=== PATIENT | male | born 1950 | race Caucasian/White ===

== ENCOUNTER → 2018-03-08 13:46 | Outpatient (CLI) | payer MEDICARE, OTHER, SELFPAY ==
--- NOTE | 2018-03-08 | DI.NM.S_ITS ---
PROCEDURE: NM LEWIS PERF SPECT R&S PHARM Rest and pharmacological stress myocardial perfusion SPECT with gated imaging and ejection fraction RADIOPHARMACEUTICAL: 24.7 mCi Tc-99m tetrafosmin IV at rest and 24.1 mCi Tc-99m tetrafosmin IV at peak effect of pharmacological stress. [id number] was performed. INDICATIONS: PERSISTENT ATRIAL FIBRILLATION TECHNIQUE: Radiopharmaceutical was injected at peak stress test, and also at rest. SPECT images were obtained. SPECT myocardial perfusion images were displayed in short axis, horizontal long axis, and vertical long axis views. Gated images were reviewed using [employer] software. COMPARISON: None. CARDIAC STRESS: A pharmacologic stress test was performed under the supervision of an attending staff, using an infusion of lexiscan 0.4mg IV X1. Hemodynamic data: There is normal blood pressure and heart rate response to pharmacologic stress. Symptoms: The patient denied anginal chest pain. Aminophylline: none EKG: Patient had atrial fibrillation with rapid ventricular response during the entire study. No diagnostic changes of ischemia. FINDINGS: Raw data: There is good myocardial uptake of radiotracer. No significant motion artifacts. Left ventricle function: Gated images were obtained but are unreliable due to significant R-R variation from atrial fibrillation. Myocardial perfusion: Slight small defect apical defect that appears to be apical thinning defect. No ischemia and no definite infarction noted. IMPRESSION: Low risk, probably normal pharmaceutical nuclear stress test. 1) Probably normal perfusion images. Slight small defect apical defect that appears to be apical thinning defect. No ischemia and no definite infarction noted. 2) Persistent atrial fibrillation with rapid ventricular response present during the entire study. 3) No angina during the study. 4) No prior nuclear stress test available for comparison. Dictated by: Katherine Guzman MD on 03/09/2018 at 12:42 Approved by: Katherine Guzman MD on 03/09/2018 at 12:47
[2018-03-08] MEDS: METOPROLOL 50 MG TABLET PO (17:09)
== END ==
PROVIDERS: PCP Physician Assistant; Visit Provider Internal Medicine Cardiovascular Disease
DX: I48.1 Persistent atrial fibrillation (principal)
CPT/HCPCS: 78452; 93016; 93017; 93018; A9502; J2785

== ENCOUNTER → 2018-03-09 09:55 | Outpatient (CLI) | payer MEDICARE, OTHER, SELFPAY ==
[2018-03-09 12:04] LABS: Alanine Aminotransferase 48 IU/L (21-72); Albumin 4.2 g/dL (3.5-5.0); Albumin Globulin Ratio 1.1 (1.0-2.8); Alkaline Phosphatase 64 U/L (38-126); Aspartate Aminotransferase 31 IU/L (17-59); BUN Creatinine Ratio 16.9 (6-22); Bilirubin Total 1.2 mg/dL (0.2-1.3); Blood Urea Nitrogen 22 mg/dL (9-20); C-Reactive Protein Quant 0.5 mg/dL (<1.0); Calcium 9.3 mg/dL (8.4-10.2); Carbon Dioxide 31 mmol/L (22-32); Chloride 90 mmol/L (98-107); Estimated Glomerular Filt Rate 55.4 mL/min (>60); Globulin 3.7 g/dL (1.7-4.1); Glucose 109 mg/dL (80-110); HEMOLYSIS 27 (0-50); Magnesium 1.7 mg/dL (1.6-2.3); Potassium 4.1 mmol/L (3.4-5.1); Sodium 138 mmol/L (137-145); Total Protein 7.9 g/dL (6.3-8.2)
[2018-03-09 12:15] LABS: Erythrocyte Sedimentation Rate 2 MM/HR (0-15)
[2018-03-09 12:33] LABS: Thyroid Stimulating Hormone 2.87 uIU/mL (0.47-4.68)
[2018-03-09 12:42] LABS: Uric Acid 13.3 mg/dL (3.5-8.5)
== END ==
PROVIDERS: Internal Medicine Cardiovascular Disease; Family Provider Orthopaedic Surgery Foot and Ankle Surgery; PCP Physician Assistant; Visit Provider Physician Assistant
DX: I48.91 Unspecified atrial fibrillation (principal); I10 Essential (primary) hypertension; M10.472 Other secondary gout, left ankle and foot; I48.1 Persistent atrial fibrillation
CPT/HCPCS: 36415; 80053; 83735; 84443; 84550; 85651; 86140

== ENCOUNTER → 2018-03-21 09:46 | Outpatient (CLI) | payer MEDICARE, OTHER, SELFPAY ==
--- NOTE | 2018-03-24 07:56 | PM.PFT.1 ---
Pulmonary Function Test Referral & Results Date Patient Seen: 03/21/18 Requesting provider: Doc Perdomo Results: The spirometry demonstrates an FVC of 3.01 L which is 53% of predicted. The FEV1 was measured at 2.37 L which is 56% of predicted. The FEV1/FVC ratio was 79 which is 106% of predicted. Following the administration of bronchodilator there was a 10% improvement in FEV1 and a 43% improvement in FEF 25-75%. Lung volumes show an SVC of 3.20 L which is 57% of predicted. The diffusing capacity was measured at 33.6 for which is 83% of predicted. No hemoglobin value was provided, so no correction for potential anemia could be made, if appropriate. The maximum voluntary ventilation was reduced. Interpretation: This study demonstrates moderate obstructive lung disease with some limited evidence of benefit following the administration of bronchodilator based on a 10% improvement in FEV1 and a 43% improvement in FEF 25-75%. This would suggest more improvement in small airway flow Lung volumes are also reduce suggesting significant restrictive lung disease There is very mild reduction in diffusing capacity the may represent some element of disease at the capillary alveolar level, assuming patient is not anemic Clinical correlation suggested
== END ==
PROVIDERS: Family Provider Orthopaedic Surgery Foot and Ankle Surgery; PCP Physician Assistant; Visit Provider Internal Medicine Cardiovascular Disease
DX: R06.02 Shortness of breath (principal)
CPT/HCPCS: 94010; 94060; 94729

== ENCOUNTER → 2018-09-04 15:04 | Outpatient (CLI) | payer MEDICARE, OTHER, SELFPAY ==
[2018-09-04 15:38] LABS: Add Manual Diff / Slide Review NO; Basophils Percent Auto 0.9 % (0-2); Eosinophils Percent Auto 1.9 % (2-4); Hemoglobin 17.3 g/dL (13.5-17.5); Lymphocytes Percent Auto 21.3 % (25-40); Mean Corpuscular Hemoglobin 35.5 PG (26-34); Mean Corpuscular Volume 104.5 fL (80-100); Monocytes Percent Auto 8.1 % (3-14); Neutrophils Absolute Auto 7300 /uL (3000-5900); Neutrophils Percent Auto 67.8 % (50-75); Platelet Count 178 X10^3/uL (150-400); Red Blood Cell Count 4.88 X10^6/uL (4.5-5.9); Red Cell Distribution Width 15.8 % (11.6-14.8); White Blood Cell Count 10.8 X10^3/uL (4.5-11.0)
[2018-09-07 13:51] LABS: Erythropoietin 16.5 mIU/mL (2.6-18.5)
== END ==
PROVIDERS: PCP Internal Medicine; Visit Provider Internal Medicine Cardiovascular Disease
DX: D75.1 Secondary polycythemia (principal)
CPT/HCPCS: 36415; 82668; 85025

== ENCOUNTER → 2020-05-13 19:04 | Outpatient (ROUT) | payer MEDICARE, OTHER, SELFPAY ==
[2020-05-13 20:08] LABS: Add Manual Diff / Slide Review NO; Basophils Absolute Auto 100 /uL (0-100); Basophils Percent Auto 0.6 % (0-2); Eosinophils Absolute Auto 300 /uL (0-450); Eosinophils Percent Auto 3.1 % (2-4); Hemoglobin 14.4 g/dL (13.5-17.5); Lymphocytes Absolute Auto 1500 /uL (1100-4500); Lymphocytes Percent Auto 17.6 % (25-40); Mean Corpuscular HGB Conc 34.2 % (30-36); Mean Corpuscular Hemoglobin 35.6 PG (26-34); Mean Corpuscular Volume 103.8 fL (80-100); Monocytes Absolute Auto 600 /uL (0-900); Monocytes Percent Auto 7.5 % (3-14); Neutrophils Absolute Auto 6100 /uL (1500-7000); Neutrophils Percent Auto 71.2 % (50-75); Platelet Count 202 X10^3/uL (150-400); Red Blood Cell Count 4.05 X10^6/uL (4.5-5.9); Red Cell Distribution Width 14.6 % (11.6-14.8); White Blood Cell Count 8.6 X10^3/uL (4.5-11.0)
[2020-05-13 20:09] LABS: Aspartate Aminotransferase 24 IU/L (17-59); BUN Creatinine Ratio 18.4 (6-22); Blood Urea Nitrogen 19 mg/dL (9-20); Calcium 9.5 mg/dL (8.4-10.2); Carbon Dioxide 31 mmol/L (22-32); Chloride 100 mmol/L (98-107); Cholesterol 144 mg/dL (140-199); Estimated Glomerular Filt Rate > 60.0 mL/min (>60); Glucose 115 mg/dL (80-110); HDL Cholesterol 65 mg/dL (40-60); HEMOLYSIS < 15 (0-50); LDL Cholesterol Calculated 61 mg/dL (<100); Potassium 4.8 mmol/L (3.4-5.1); Sodium 137 mmol/L (137-145); Triglycerides 89 mg/dL (35-150)
[2020-05-13 20:37] LABS: Prostate Specific Antigen 1.79 ng/mL (0.10-4.00)
== END ==
PROVIDERS: Family Provider Orthopaedic Surgery Foot and Ankle Surgery; PCP Internal Medicine; Visit Provider Internal Medicine
DX: I10 Essential (primary) hypertension (principal); E78.2 Mixed hyperlipidemia; I67.89 Other cerebrovascular disease; N52.9 Male erectile dysfunction, unspecified
CPT/HCPCS: 80048; 80061; 84153; 84450; 85025

== ENCOUNTER → 2020-09-23 11:24 | Outpatient (CLI) | payer MEDICARE, OTHER, SELFPAY ==
[2020-09-23 12:28] LABS: INR 1.6 (0.9-1.3); Prothrombin Time 17.9 SECONDS (10.1-12.7)
[2020-09-23 12:37] LABS: Blood Urea Nitrogen 22 mg/dL (9-20); Calcium 9.3 mg/dL (8.4-10.2); Carbon Dioxide 33 mmol/L (22-32); Chloride 100 mmol/L (98-107); Estimated Glomerular Filt Rate > 60.0 mL/min (>60); Glucose 116 mg/dL (80-110); HEMOLYSIS < 15 (0-50); Potassium 4.4 mmol/L (3.4-5.1); Sodium 138 mmol/L (137-145)
== END ==
PROVIDERS: Family Provider Orthopaedic Surgery Foot and Ankle Surgery; PCP Internal Medicine; Referring Provider Internal Medicine Cardiovascular Disease; Visit Provider Internal Medicine Cardiovascular Disease
DX: I48.91 Unspecified atrial fibrillation (principal); I10 Essential (primary) hypertension
CPT/HCPCS: 36415; 80048; 83735; 85610

== ENCOUNTER → 2021-06-05 07:04 | Outpatient (CLI) | payer MEDICARE, OTHER, SELFPAY ==
--- NOTE | 2021-06-05 | DI.CT.S_ITS ---
PROCEDURE: CT ABDOMEN WO CON INDICATIONS: Abdominal aortic aneurysm, without rupture TECHNIQUE: After the administration of oral contrast, 5 mm thick sections acquired from the diaphragms to the iliac crests. 5 mm coronal and sagittal reformats were then performed. For radiation dose reduction, the following was used: automated exposure control, adjustment of mA and/or kV according to patient size. COMPARISON: None. FINDINGS: Image quality: Excellent. Lung bases: Lung bases are clear. Heart size is normal. Partially imaged moderate coronary artery calcification. Solid organs: The unenhanced appearance of the liver, spleen, gallbladder, adrenal glands, and pancreas is normal. The kidneys are symmetric in size with senescent changes of mild bilateral perinephric stranding. No hydronephrosis or stones. Peritoneum and bowel: Stomach and visible bowel loops are relatively decompressed without inflammation. A normal appendix is seen. No intraperitoneal masses or visible fluid. Nodes and vessels: The abdominal aorta is normal caliber with heavy atherosclerotic calcification, including particularly heavy calcification at the right renal artery origin. Heavy calcification continues into the iliac bifurcation. No evidence of abdominal aortic aneurysm the abdominal aorta measures 2.1 cm in maximal AP diameter. Right common iliac artery is 1.6 cm. Left common iliac artery measures 1.4 cm. The inferior vena cava is moderately decompressed. Bones: Flowing osteophytosis throughout the thoracolumbar spine. Bulky bridging osteophytes in the lumbar spine. There is a compression fracture of L4 with vertebroplasty cement. Miscellaneous: No ventral hernias. IMPRESSION: 1. Heavy abdominal aortic atherosclerosis but no evidence of aneurysm. 2. Bridging osteophytosis and partial ankylosis throughout the spine. Repaired L4 vertebral body compression fracture. Dictated by: Gunjan Jerez M.D. on 06/05/2021 at 9:26 Approved by: Gunjan Jerez M.D. on 06/05/2021 at 9:34
== END ==
PROVIDERS: Family Provider Orthopaedic Surgery Foot and Ankle Surgery; PCP Internal Medicine; Referring Provider Internal Medicine; Visit Provider Internal Medicine
DX: I71.4 Abdominal aortic aneurysm, without rupture (principal); I70.0 Atherosclerosis of aorta; M25.78 Osteophyte, vertebrae
CPT/HCPCS: 74150

== ENCOUNTER 2021-06-26 21:37 | Emergency (ER) | payer MEDICARE, OTHER, SELFPAY ==
[2021-06-26] VITALS (7 sets, daily range): BP systolic 94–160; BP diastolic 53–84; PULSE 75–81; RESP 17–24; TEMP 36.4; O2SAT 95–99
[2021-06-26 22:06] LABS: Add Manual Diff / Slide Review NO; Basophils Absolute Auto 100 /uL (0-100); Basophils Percent Auto 0.8 % (0-2); Eosinophils Absolute Auto 200 /uL (0-450); Eosinophils Percent Auto 1.6 % (2-4); Hematocrit 39.7 % (41-53); Hemoglobin 13.2 g/dL (13.5-17.5); Lymphocytes Absolute Auto 1500 /uL (1100-4500); Lymphocytes Percent Auto 11.1 % (25-40); Mean Corpuscular HGB Conc 33.3 % (30-36); Mean Corpuscular Hemoglobin 34.8 PG (26-34); Mean Corpuscular Volume 104.3 fL (80-100); Monocytes Absolute Auto 600 /uL (0-900); Monocytes Percent Auto 4.7 % (3-14); Neutrophils Absolute Auto 10900 /uL (1500-7000); Neutrophils Percent Auto 81.8 % (50-75); Platelet Count 263 X10^3/uL (150-400); Red Cell Distribution Width 14.1 % (11.6-14.8); White Blood Cell Count 13.4 X10^3/uL (4.5-11.0)
[2021-06-26] MEDS: SODIUM CHLORIDE 0.9% 1,000 ML 1000 ML IV (22:09)
[2021-06-26 22:15] LABS: BUN Creatinine Ratio 10.3 (6-22); Blood Urea Nitrogen 16 mg/dL (9-20); Carbon Dioxide 25 mmol/L (22-32); Chloride 99 mmol/L (98-107); Estimated Glomerular Filt Rate 44.3 mL/min (>60); Glucose 96 mg/dL (80-110); Potassium 3.9 mmol/L (3.4-5.1); Sodium 137 mmol/L (137-145)
--- NOTE | 2021-06-26 22:28 | ED_ITS ---
HPI - Fall General Chief Complaint: Fall Stated Complaint: GLF X2 Time Seen by Provider: 06/26/21 21:54 Source: patient and family Mode of arrival: EMS History of Present Illness HPI Narrative: Patient is a 71-year-old male. Does have a history of atrial fibrillation. Is on Eliquis. Is here for evaluation of 2 ground level falls and also weakness. Patient does admit to drinking alcohol this evening. The 1st fall happened after dinner when he had been drinking alcohol. He states he was trying to get in to his truck. There was a gap between the curb and the vehicle and he stated that he tripped over this area and fell down. He did have his left leg twisted underneath of him. He did sustain an abrasion to his left knee in the top of his left foot but currently expresses no discomfort of his left leg. He states that he had a difficult time getting up from being on the ground needed help with doing this. He was able to get into the car. They drove home. As he was getting out of the car and going up the stairs and during the house he just became very weak. He sat down on the ground. He never hit his head. Has no neck pain. Was brought in by EMS. Currently has no symptoms. EMS did report that he had a low blood pressure with a systolic in the 80s. Patient states that he normally has low blood pressure. Family at bedside states that at baseline he is in the 1 100s over 70s range with his blood pressure. Related Data Previous Rx's Medication Instructions Recorded Disabled Parking Permit dev #1 07/19/16 [facility] / IM SEE INSTRUCTIONS #1 07/15/17 Syringes: 3ml Luer-Lucas Syringe 25g syr IM SEE INSTRUCTIONS #4 07/15/17 x 1 sennosides 8.6 mg tablet (senna) 2 tab PO BID #60 tab 09/24/17 hydroxyzine pamoate 25 mg capsule 25 - 50 mg PO Q4HP PRN #60 cap 10/05/17 (Vistaril) metoprolol succinate 50 mg 50 mg PO BID #180 tab 11/03/17 tablet,extended release 24 hr lisinopril 10 mg tablet 10 mg PO QDAY #90 tab 11/23/17 potassium chloride 20 mEq 20 meq PO QAM PRN #90 tab 11/23/17 tablet,extended release (K-Tab) diltiazem HCl 180 mg 180 mg PO QDAY #90 cap 12/02/17 capsule,extended release 24 hr atorvastatin 20 mg tablet (Lipitor) 20 mg PO HS #90 tab 12/09/17 metolazone 2.5 mg tablet 2.5 mg PO DAILY #90 tab 02/15/18 testosterone cypionate 200 mg/mL 200 mg IM QWEEK #4 vial 05/08/18 intramuscular oil (Depo-Testosterone) apixaban 5 mg tablet (Eliquis) 5 mg PO BID #180 tab 06/05/18 furosemide 40 mg tablet 40 mg PO BID #180 tab 06/05/18 needle (disp) 22 G 22 gauge x 1 #10 each 07/18/18/2 (BD Regular Bevel [facility]) Allergies Allergy/AdvReac Type Severity Reaction Status Date / Time No Known Drug Allergies Allergy Unknown Verified 02/15/18 07:59 adhesive tape [ADHESIVE TAPE] AdvReac Intermediate itching Verified 02/15/18 07:59 Review of Systems Constitutional Constitutional: Reports system reviewed and no additional complaints, except as documented Cardiovascular Cardiovascular: Reports system reviewed and no additional complaints, except as documented Respiratory Respiratory: Reports system reviewed and no additional complaints, except as documented Musculoskeletal Musculoskeletal: Reports system reviewed and no additional complaints, except as documented and Reports as per HPI Integumentary/Breasts Skin/Breast: Reports system reviewed and no additional complaints, except as documented and Reports as per HPI Neurologic Neurologic: Reports system reviewed and no additional complaints, except as documented and Reports as per HPI Hematologic/Lymphatic On Anticoagulants: Yes Patient History Medical History Abnormal chest xray (Unknown) Chickenpox (Unknown) Chronic a-fib (Unknown) Chronic back pain (Unknown) Erectile dysfunction (Unknown) History of CVA (cerebrovascular accident) (~2014) Hypertension (Unknown) Low testosterone in male (Unknown) Surgical History History of tonsillectomy Status post knee surgery Social History Smoking Status: Former smoker Smoking Status: Former smoker alcohol intake frequency: 3 or more drinks per day Alcohol type: beer and hard liquor Substance Use Type: does not use Exam Initial Vital Signs Initial Vital Signs: Vital Signs Temperature 97.6 F 06/26/21 21:47 Pulse Rate 81 06/26/21 21:47 Respiratory Rate 18 06/26/21 21:47 Blood Pressure 94/53 L 06/26/21 21:47 Pulse Oximetry 98 06/26/21 21:47 HENMT Head: normal to inspection and normocephalic Resp Effort & Inspection: normal respiratory effort Auscultation: clear to auscultation bilaterally Cardio Rate: regular rate Rhythm: regular rhythm Skin Other: Patient with small abrasion on the top of the left foot and also some superficial abrasions over his left knee. Neuro General: patient alert, patient awake, patient oriented x3 and moves all extremities Extrem Other: Full range of motion of the left knee and ankle. No tenderness to palpation over these areas. His right lower extremity bilateral upper ex tremities are unremarkable as well. Psych Appearance: grossly normal and well kempt Course Orders Ordered: ED Orders 06/26/21 21:58 Basic Metabolic Panel Stat Complete Blood Count AUTO DIFF Stat Ethanol (ETOH) Stat Discontinued Medications Sodium Chloride (Normal Saline 0.9%) 1,000 mls @ 1,000 mls/hr IV BOLUS ONE Stop: 06/26/21 22:56 Last Infusion: 06/26/21 23:00 Dose: 0 mls/hr Documented by: Admin: 06/26/21 22:09 Dose: 1,000 mls/hr Documented by: WINNIE Vital Signs Vital signs: Vital Signs - 8 hr 06/26/21 22:38 06/26/21 22:47 06/26/21 23:00 Pulse Rate 78 75 75 Respiratory Rate 22 24 22 Blood Pressure 120/61 115/58 L 110/57 L Pulse Oximetry 95 97 98 06/26/21 23:15 06/26/21 23:30 06/26/21 23:45 Pulse Rate 77 78 80 Respiratory Rate 20 17 18 Blood Pressure 138/70 132/68 160/84 H Pulse Oximetry 99 99 98 06/27/21 00:00 Pulse Rate 79 Respiratory Rate 22 Blood Pressure 150/71 H Pulse Oximetry 99 MDM - Fall Lab Data Attestation: I reviewed the patient's lab results. Result diagrams: 06/26/21 21:58 06/26/21 21:58 Labs: Lab Results 06/26/21 06/26/21 Range/Units 21:58 21:58 WBC 13.4 H (4.5-11.0) X10^3/uL RBC 3.80 L (4.5-5.9) X10^6/uL Hgb 13.2 L (13.5-17.5) g/dL Hct 39.7 L (41-53) % MCV 104.3 H (80-100) fL MCH 34.8 H (26-34) PG MCHC 33.3 (30-36) % RDW 14.1 (11.6-14.8) % Plt Count 263 (150-400) X10^3/uL Neut % (Auto) 81.8 H (50-75) % Lymph % (Auto) 11.1 L (25-40) % [place] % (Auto) 4.7 (3-14) % Eos % (Auto) 1.6 L (2-4) % Baso % (Auto) 0.8 (0-2) % Neut # (Auto) 63692 H (8031-5700) /uL Lymph # (Auto) 1500 (8252-5952) /uL [place] # (Auto) 600 (0-900) /uL Eos # (Auto) 200 (0-450) /uL Baso # (Auto) 100 (0-100) /uL Sodium 137 (137-145) mmol/L Potassium 3.9 (3.4-5.1) mmol/L Chloride 99 (98-107) mmol/L Carbon Dioxide 25 (22-32) mmol/L BUN 16 (9-20) mg/dL Creatinine 1.56 H (0.66-1.25) mg/dL Estimated GFR 44.3 L (>60) mL/min BUN/Creatinine Ratio 10.3 (6-22) Glucose 96 (80-110) mg/dL Calcium 9.0 (8.4-10.2) mg/dL Ethyl Alcohol 136 H ( - 10) mg/dL MDM Narrative Medical decision making narrative: Patient is alert oriented x3. He was able to stand at bedside. Did have somewhat of a lower blood pressure upon arrival but this did improve with fluids. He was able to walk without issues as well. I suspect that his issues this evening were because of the alcohol that he has been drinking. No indication for radiologic studies. He was given return precautions follow-up instructions. He expressed understanding and agreement. Discharge Plan Departure Patient Disposition: Home Clinical Impression: Abrasion of skin, Alcohol intoxication, Weakness Instructions: How to Prevent Falls Activity Restrictions/Additional Instructions: Be sure to increase your fluid intake. Continue to take all of your medications as directed. Return to the emergency department for any new or worsening symptoms Prescriptions: No Action metolazone 2.5 mg tablet 2.5 mg PO DAILY Qty: 90 RF: 3 Disabled Parking Permit Qty: 1 RF: 0 Syringes: 3ml Luer-Lucas Syringe 25g x 1 IM SEE INSTRUCTIONS Qty: 4 RF: 5 [facility] IM SEE INSTRUCTIONS Qty: 1 RF: 5 sennosides [senna] 8.6 MG tablet 2 tab PO BID Qty: 60 RF: 0 hydroxyzine pamoate [Vistaril] 25 MG capsule 25 - 50 mg PO Q4HP PRNQty: 60 RF: 0 metoprolol succinate 50 MG tablet extended release 24 hr 50 mg PO BID Qty: 180 RF: 3 potassium chloride [K-Tab] 20 MEQ tablet extended release 20 meq PO QAM PRNQty: 90 RF: 3 lisinopril 10 MG tablet 10 mg PO QDAY Qty: 90 RF: 3 diltiazem HCl 180 MG capsule,extended release 24hr 180 mg PO QDAY Qty: 90 RF: 3 atorvastatin [Lipitor] 20 MG tablet 20 mg PO HS Qty: 90 RF: 3 testosterone cypionate [Depo-Testosterone] 200 mg/mL oil 200 mg IM QWEEK Qty: 4 RF: 5 furosemide 40 mg tablet 40 mg PO BID Qty: 180 RF: 0 Eliquis 5 mg tablet 5 mg PO BID Qty: 180 RF: 0 (DME) needle (disp) 22 G [BD Regular Bevel [facility]] 22 gauge x 1 1/2 needle See Dose Instructions .ROUTE .MEDSUPPLY Qty: 10 RF: 0 Referrals: Tan Carter MD [Primary Care Provider] -
[2021-06-26 22:29] LABS: Ethanol (ETOH) 136 mg/dL; HEMOLYSIS 22 (0-50)
[2021-06-27] VITALS: BP 150/71; PULSE 79; RESP 22; O2SAT 99
== END 2021-06-27 00:20 | disposition home or self-care (01) ==
PROVIDERS: Emergency Provider Emergency Medicine; Family Provider Orthopaedic Surgery Foot and Ankle Surgery; PCP Internal Medicine
DX: S80.212A Abrasion, left knee, initial encounter (principal); R53.1 Weakness; F10.129 Alcohol abuse with intoxication, unspecified; Y90.6 Blood alcohol level of 120-199 mg/100 ml; W19.XXXA Unspecified fall, initial encounter
CPT/HCPCS: 36415; 80048; 80320; 85025; 96360; 99284

== ENCOUNTER → 2022-04-27 14:00 | Outpatient (CLI) | payer MEDICARE, OTHER, SELFPAY ==
--- NOTE | 2022-04-27 | DI.ECHO.S_ITS ---
[place] +---------+ [facility] +---------+ : : [address] [place] : : : : [id number] : : : : Phone: [phone]---------+ Echocardiogram Report + + :Name: DIAMOND SLEBY Study Date: 04/27/2022 Height: 76 in : :[facility] ReadingLocation: Weight: 310 lb : : Gender: Male BSA: 2.7 m2 : :: 1950 Age: 71 yrs BP: 148/99 mmHg: :Reason For Study: ATRIAL FIBRILLATION : :Ordering Physician: FLORINDA, : :JANEY Performed By: Marian Dumont : :Referring: JANEY NEELY : + + Interpretation Summary The left ventricle is normal in size and wall thickness. Left ventricular ejection fraction is estimated to be 55 +/- 5%. The right ventricle is normal in size and function. No significant valvular pathology seen. The IVC is of normal diameter and collapses greater than 50% with a sniff. This suggests a low right atrial pressure of 3 mm Hg. Procedure: A two-dimensional transthoracic echocardiogram with color flow and Doppler was performed. The study quality was technically difficult. A contrast injection of Definity was performed to improve assessment of LV function. Comparison is made with the echocardiogram of 09/21/2017. Apical images taken from on off axis window for better visualization. Measurements should be viewed as approximate. The heart rate ranged between 70-85 bpm during the study. Rhythm not very clear but suspect sinus with first-degree AV block. Left Ventricle: The left ventricle is normal in size and wall thickness. There is no thrombus. Left ventricular ejection fraction is estimated to be 55 +/- 5%. There are no focal wall motion abnormalities. MV E/A: 1.8 Med Peak E' Johnson: 7.1 cm/sec E/E' med: 9.7. Right Ventricle: The right ventricle is normal in size and function. Atria: The left atrium is mildly dilated. The left atrium has remained unchanged in size since the prior echo exam. Right atrial size is normal. There is no Doppler evidence for an interatrial shunt. Mitral Valve: The mitral valve leaflets appear mildly thickened, but open well. There is mild mitral annular calcification. There is mild mitral regurgitation. Aortic Valve: The aortic valve is trileaflet. The aortic valve opens well. There is no aortic valve stenosis. No aortic regurgitation is present. Tricuspid Valve: The tricuspid valve is normal in structure and function. There is trace tricuspid regurgitation. Pulmonary artery pressures cannot be estimated because of the lack of a measurable TR jet velocity. Pulmonic Valve: The pulmonic valve is not well visualized. There is no pulmonic valvular regurgitation. Great Vessels: The aortic root is normal size. The dimensions of the ascending aorta are normal. The IVC is of normal diameter and collapses greater than 50% with a sniff. This suggests a low right atrial pressure of 3 mm Hg. Pericardium/ Pleura There is no pericardial effusion. There is no pleural effusion. MMode/2D Measurements & Calculations LVIDd: 5.3 cm LVOT diam: 2.3 cm LVIDs: 4.0 cm Ao root diam: 3.7 cm FS: 25.5 % asc Aorta Diam: 3.4 cm EPSS: 0.47 cm IVSd: 0.99 cm LVPWd: 0.86 cm LV cline. diameter/BSA (cm/m^2): 2.0 LV sys. diameter/BSA (cm/m^2): 1.5 LA dimension: 4.5 cm RA long axis: 6.4 cm LA A4 area: 22.8 cm2 RA area: 25.9 cm2 LA length (vol): 6.2 cm RA vol: 88.4 ml RA : 33.1 ml/m2 IVC diam: 1.4 cm RVD1 (basal): 3.3 cm RVD2 (mid): 3.9 cm TAPSE: 2.5 cm Doppler Measurements & Calculations Ao V2 max: 60.0 cm/sec LVOT Max Johnson: 47.5 cm/sec Ao V2 mean: 43.2 cm/sec LV V1 max P.90 mmHg Ao max P.4 mmHg LV V1 VTI: 9.6 cm Ao mean P.83 mmHg MARION(I,D): 3.1 cm2 Ao V2 VTI: 13.2 cm MARION(V,D): 3.4 cm2 sev ratio: 0.73 MARION indexed to BSA (cm^2/m^2): 1.2 MV E max johnson: 69.0 cm/sec PA V2 max: 51.5 cm/sec MV A max johnson: 38.5 cm/sec PA V2 mean: 36.6 cm/sec MV E/A: 1.8 PA mean P.61 mmHg Med Peak E' Johnson: 7.1 cm/sec PA pr(Accel): 7.1 mmHg E/E' med: 9.7 Lat Peak E' Johnson: 6.9 cm/sec E/E' lat: 10.0 E/e' average: 9.8 MV dec time: 0.20 sec SV(OT): 41.3 ml Reading Physician:05:25 PM
[2022-04-27 15:21] LABS: COVID19 -Nasal RAPID Negative (Negative)
== END ==
PROVIDERS: Family Provider Orthopaedic Surgery Foot and Ankle Surgery; PCP Internal Medicine; Referring Provider Internal Medicine Cardiovascular Disease; Visit Provider Internal Medicine Cardiovascular Disease
DX: I34.0 Nonrheumatic mitral (valve) insufficiency (principal); I48.0 Paroxysmal atrial fibrillation; R06.02 Shortness of breath; Z51.81 Encounter for therapeutic drug level monitoring; Z20.822 Contact with and (suspected) exposure to COVID-19
CPT/HCPCS: 87635; 93306; C8929; Q9957

== ENCOUNTER → 2022-04-28 10:34 | Outpatient (CLI) | payer MEDICARE, OTHER, SELFPAY ==
--- NOTE | 2022-04-30 17:53 | DI.NM.S_ITS ---
DATE OF SERVICE: PROCEDURE: Pharmacological perfusion study. INDICATION: Shortness of breath. Underlying atrial fibrillation. RADIOPHARMACEUTICAL: 26.3 mCi technetium-99m Myoview IV was and injected at stress and 24.3 mCi technetium-99m Myoview IV was injected at rest. CARDIAC STRESS: The patient underwent IV Lexiscan perfusion study under the supervision of an attending staff using standard IV Lexiscan as per protocol. The patient remained hemodynamically stable. Baseline blood pressure was 120/82. Baseline rhythm appears to be slow atrial flutter with some nonspecific ST-T changes. During stress, no new convincing ischemic changes or new arrhythmias seen. RAW DATA: There is a significant soft tissue shadow around the heart as well as increased subdiaphragmatic activity. The patient the patient's weight is 320 pounds. The stress LV ejection fraction 59%. Cannot rule out wall motion abnormalities. Resting end-diastolic volume 102 mL. TID ratio 1.23. It is a pharmacological perfusion study which is not significantly abnormal. Lung/heart ratio 0.41, which is within normal limits. MYOCARDIAL PERFUSION SCAN: There are no stress prone images. Stress supine and resting supine images were compared to each other. There appears to be small size, mild reversible ischemia of base-to-mid inferolateral wall. CONCLUSION: This is an abnormal myocardial perfusion study with small size, mild reversible ischemia of base-to-mid inferolateral wall. The patient had a perfusion study in February 2018; at that time, there was normal myocardial perfusion with apical thinning. However, sum stress score and sum rest score is 4 and sum difference score is 0. On visual inspection, there appears to be mild reversible ischemia. Ischemic burden is not significant. Left ventricular function overall preserved. Overall low-risk myocardial perfusion scan. Panchito Hui - GUTIERREZ/susan/TE doc#: [id number]/job#: [id number] dd: 04/30/2022 17:06:00 dt: 04/30/2022 17:35:00 DICTATING MD/COPIES TO: Doc Perdomo MD COPIES MNE: RADHA;
== END ==
PROVIDERS: Family Provider Orthopaedic Surgery Foot and Ankle Surgery; PCP Internal Medicine; Referring Provider Internal Medicine Cardiovascular Disease; Visit Provider Internal Medicine Cardiovascular Disease
DX: I48.0 Paroxysmal atrial fibrillation (principal); R06.02 Shortness of breath; R94.39 Abnormal result of other cardiovascular function study; Z51.81 Encounter for therapeutic drug level monitoring; Z79.899 Other long term (current) drug therapy
CPT/HCPCS: 78452; 93017; A9502; J2785

== ENCOUNTER → 2022-05-05 17:02 | Outpatient (CLI) | payer MEDICARE, OTHER, SELFPAY ==
[2022-05-05 17:46] LABS: Hemoglobin 15.6 g/dL (13.5-17.5); Mean Corpuscular HGB Conc 33.8 % (30-36); Mean Corpuscular Hemoglobin 34.5 PG (26-34); Platelet Count 218 X10^3/uL (150-400); Red Blood Cell Count 4.51 X10^6/uL (4.5-5.9); Red Cell Distribution Width 15.2 % (11.6-14.8); White Blood Cell Count 11.2 X10^3/uL (4.5-11.0)
[2022-05-05 18:10] LABS: Alanine Aminotransferase 25 IU/L (<50); Albumin 4.2 g/dL (3.5-5.0); Albumin Globulin Ratio 1.1 (1.0-2.8); Alkaline Phosphatase 86 U/L (38-126); Aspartate Aminotransferase 29 IU/L (17-59); BUN Creatinine Ratio 14.9 (6-22); Bilirubin Total 0.7 mg/dL (0.2-1.3); Blood Urea Nitrogen 24 mg/dL (9-20); Calcium 8.8 mg/dL (8.4-10.2); Carbon Dioxide 31 mmol/L (22-32); Chloride 96 mmol/L (98-107); Cholesterol 161 mg/dL (140-199); Estimated Glomerular Filt Rate 46 mL/min (>60); Globulin 3.7 g/dL (1.7-4.1); Glucose 105 mg/dL (80-110); HDL Cholesterol 62 mg/dL (40-60); HEMOLYSIS 15 (0-50); LDL Cholesterol Calculated 71 mg/dL (<100); Potassium 4.7 mmol/L (3.4-5.1); Sodium 137 mmol/L (137-145); Total Protein 7.9 g/dL (6.3-8.2); Triglycerides 138 mg/dL (35-150); Uric Acid 3.9 mg/dL (3.5-8.5)
[2022-05-05 18:46] LABS: TSH w/ Reflex to FT4 3.43 uIU/mL (0.47-4.68)
== END ==
PROVIDERS: Family Provider Orthopaedic Surgery Foot and Ankle Surgery; PCP Internal Medicine; Referring Provider Internal Medicine; Visit Provider Internal Medicine
DX: I10 Essential (primary) hypertension (principal); I48.0 Paroxysmal atrial fibrillation; E78.2 Mixed hyperlipidemia; M1A.9XX0 Chronic gout, unspecified, without tophus (tophi)
CPT/HCPCS: 36415; 80053; 80061; 83735; 84443; 84550; 85027

== ENCOUNTER → 2022-08-06 09:10 | Outpatient (CLI) | payer MEDICARE, OTHER, SELFPAY ==
[2022-08-06 11:59] LABS: Alanine Aminotransferase 29 IU/L (<50); Albumin 3.9 g/dL (3.5-5.0); Alkaline Phosphatase 83 U/L (38-126); Aspartate Aminotransferase 24 IU/L (17-59); BUN Creatinine Ratio 9.3 (6-22); Bilirubin Total 0.6 mg/dL (0.2-1.3); Blood Urea Nitrogen 8 mg/dL (9-20); Calcium 8.8 mg/dL (8.4-10.2); Carbon Dioxide 27 mmol/L (22-32); Chloride 99 mmol/L (98-107); Estimated Glomerular Filt Rate > 60 mL/min (>60); Globulin 3.8 g/dL (1.7-4.1); Glucose 100 mg/dL (80-110); HEMOLYSIS < 15 (0-50); Potassium 4.3 mmol/L (3.4-5.1); Sodium 136 mmol/L (137-145); Total Protein 7.7 g/dL (6.3-8.2)
[2022-08-06 12:46] LABS: Vitamin B12 > 1000 pg/mL (239-931)
[2022-08-07 07:31] LABS: RPR Screen Non Reactive (Non Reactive)
[2022-08-11 05:21] LABS: Methylmalonic Acid,Serum 92 nmol/L (0-378)
== END ==
PROVIDERS: Family Provider Orthopaedic Surgery Foot and Ankle Surgery; PCP Internal Medicine; Referring Provider Internal Medicine; Visit Provider Internal Medicine
DX: E53.8 Deficiency of other specified B group vitamins (principal); I25.10 Atherosclerotic heart disease of native coronary artery without angina pectoris; Z20.9 Contact with and (suspected) exposure to unspecified communicable disease
CPT/HCPCS: 36415; 80053; 82607; 83921; 86592

== ENCOUNTER → 2022-08-16 10:48 | Outpatient (CLI) | payer MEDICARE, OTHER, SELFPAY ==
--- NOTE | 2022-08-16 10:49 | DI.CT.S_ITS ---
PROCEDURE: CT HEAD/BRAIN WO CON INDICATIONS: dementia, please evaluate for NPH, CVA TECHNIQUE: Noncontrast 4.5 mm thick angled axial sections acquired from the foramen magnum to the vertex, with coronal and sagittal reformats. For radiation dose reduction, the following was used: automated exposure control, adjustment of mA and/or kV according to patient size. COMPARISON: [facility], CT, HEAD WITHOUT CONTRAST, 02/18/2016, 20:08. FINDINGS: Image quality: Excellent. CSF spaces: Basal cisterns are patent. No extra-axial fluid collections. The ventricles are symmetric in size and shape. Brain: This patient has bilateral remote infarctions involving the posterior cerebral hemispheres. The left posterior cerebral hemisphere infarction is stable compared to 2016. The infarction on the right is new compared to 2016. Additional smaller areas of remote appearing infarction can be seen. No intracranial bleeds or masses. There is cerebral volume loss for age, with resultant ventricular and sulcal prominence. There are periventricular and deep white matter chronic small vessel ischemic changes. There is intracranial internal carotid artery atherosclerosis. Skull and face: Calvarium and visualized facial bones appear intact, without suspicious lesions. Sinuses: Visualized sinuses and mastoids are clear. IMPRESSION: Bilateral remote infarctions can be seen. Age-appropriate volume loss is seen, without suspicion for normal pressure hydrocephalus. Dictated by: Ac Egan M.D. on 08/16/2022 at 11:33 Approved by: Ac Egan M.D. on 08/16/2022 at 11:34
== END ==
PROVIDERS: Family Provider Orthopaedic Surgery Foot and Ankle Surgery; PCP Internal Medicine; Referring Provider Internal Medicine; Visit Provider Internal Medicine
DX: F03.A4 Unspecified dementia, mild, with anxiety (principal); I67.9 Cerebrovascular disease, unspecified
CPT/HCPCS: 70450

== ENCOUNTER → 2022-11-03 08:59 | Outpatient (CLI) | payer MEDICARE, OTHER, SELFPAY ==
[2022-11-04 11:11] LABS: Fecal Immunochemical Test Negative (Negative)
== END ==
PROVIDERS: Family Provider Orthopaedic Surgery Foot and Ankle Surgery; PCP Internal Medicine; Referring Provider Internal Medicine; Visit Provider Internal Medicine
DX: Z12.11 Encounter for screening for malignant neoplasm of colon (principal)
CPT/HCPCS: 82274

== ENCOUNTER 2023-03-02 13:32 | Observation (INO) | payer MEDICARE, OTHER, SELFPAY ==
[2023-03-02] VITALS (25 sets, daily range): BP systolic 159–187; BP diastolic 71–130; PULSE 65–87; RESP 15–38; TEMP 36.2–36.4; O2SAT 94–99; BMI 39.6
--- NOTE | 2023-03-02 13:45 | DI.RAD.S_ITS ---
PROCEDURE: XR CHEST 1V INDICATIONS: Shortness of breath TECHNIQUE: One view of the chest was acquired. COMPARISON: [facility], , CHEST 1 VIEW, 09/20/2017, 16:49. FINDINGS: Surgical changes and devices: None. Lungs and pleura: Patchy bibasilar atelectasis. No pleural effusions or pneumothorax. Mediastinum: Mediastinal contours appear normal. Heart size is normal. Bones and chest wall: No suspicious bony lesions. Old left rib fractures. Overlying soft tissues appear unremarkable. IMPRESSION: Patchy bibasilar atelectasis. Dictated by: Shane Hernández M.D. on 03/02/2023 at 14:40 Approved by: Shane Hernández M.D. on 03/02/2023 at 14:40
--- NOTE | 2023-03-02 15:32 | PC.NURSE ---
upon assessment, pt was asked to sit forward in [facility]. Pt had a difficult time sitting up and states that is not normal for him and has been getting increasingly difficult in the last 3-4 days. Asked pt if he is ambulatory at home and he states he is, with help of rails installed around the house.
[2023-03-02 15:54] LABS: Add Manual Diff / Slide Review NO; Basophils Absolute Auto 100 /uL (0-100); Basophils Percent Auto 0.8 % (0-2); Eosinophils Absolute Auto 100 /uL (0-450); Eosinophils Percent Auto 1.2 % (2-4); Hemoglobin 15.1 g/dL (13.5-17.5); Lymphocytes Absolute Auto 1700 /uL (1100-4500); Lymphocytes Percent Auto 21.1 % (25-40); Mean Corpuscular HGB Conc 32.8 % (30-36); Mean Corpuscular Hemoglobin 32.6 PG (26-34); Mean Corpuscular Volume 99.4 fL (80-100); Monocytes Absolute Auto 600 /uL (0-900); Monocytes Percent Auto 7.4 % (3-14); Neutrophils Absolute Auto 5700 /uL (1500-7000); Neutrophils Percent Auto 69.5 % (50-75); Platelet Count 173 X10^3/uL (150-400); Red Blood Cell Count 4.63 X10^6/uL (4.5-5.9); Red Cell Distribution Width 16.1 % (11.6-14.8); White Blood Cell Count 8.3 X10^3/uL (4.5-11.0)
[2023-03-02 15:55] LABS: INR 1.7 (0.9-1.3); Prothrombin Time 20.1 SECONDS (10.1-12.7)
[2023-03-02 16:03] LABS: Lactate (Lactic Acid) 1.1 mmol/L (0.7-2.1)
[2023-03-02 16:04] LABS: Alanine Aminotransferase 24 IU/L (<50); Albumin 4.2 g/dL (3.5-5.0); Albumin Globulin Ratio 1.2 (1.0-2.8); Alkaline Phosphatase 69 U/L (38-126); Aspartate Aminotransferase 23 IU/L (17-59); BUN Creatinine Ratio 15.3 (6-22); Blood Urea Nitrogen 13 mg/dL (9-20); Calcium 8.9 mg/dL (8.4-10.2); Carbon Dioxide 34 mmol/L (22-32); Chloride 98 mmol/L (98-107); Estimated Glomerular Filt Rate > 60 mL/min (>60); Globulin 3.6 g/dL (1.7-4.1); Glucose 107 mg/dL (80-110); HEMOLYSIS < 15 (0-50); Potassium 4.1 mmol/L (3.4-5.1); Sodium 137 mmol/L (137-145); Total Protein 7.8 g/dL (6.3-8.2)
[2023-03-02 16:16] LABS: NT-proBNP (BNP-Adult 18+) 2040 pg/mL (<125); Troponin I < 0.012 ng/mL (0.01-0.034)
[2023-03-02 16:31] LABS: COVID19 -Nasal RAPID Negative (Negative)
--- NOTE | 2023-03-02 16:44 | DI.CT.S_ITS ---
PROCEDURE: CT CHEST ABD PEL WO CON INDICATIONS: Sepsis TECHNIQUE: After the administration of oral contrast, 5 mm thick sections acquired from the lung apices to the symphysis pubis. 5 mm thick coronal and sagittal reformats acquired, with additional 7 mm coronal MIP reformats through the lungs. For radiation dose reduction, the following was used: automated exposure control, adjustment of mA and/or kV according to patient size. COMPARISON: [facility], CT, CT ANGIO CHEST, 10/20/2022, 9:31. [facility], CR, XR CHEST 1V, 03/02/2023, 14:10. FINDINGS: Image quality: Excellent. CHEST: Lungs and pleura: Small bilateral pleural effusions, slightly greater on the right than on the left with atelectasis of the adjacent lung bases. No pneumothorax. Chronic scarring is seen in the lingula. Central and peripheral airways are patent are normal in caliber. Mediastinum: Heart size is mildly enlarged. Trace pericardial fluid is most likely physiologic. Moderate to severe coronary artery calcifications. No mediastinal adenopathy by CT size criteria. Thoracic aorta and central pulmonary arteries are normal in size. Esophagus is normal in caliber. No hiatal hernia. Chest wall: No axillary or supraclavicular adenopathy by size criteria. A punctate calcified right thyroid nodule does not require dedicated imaging follow-up. ABDOMEN: Solid organs: Liver is normal in size. Gallbladder is unremarkable. Pancreas is normal in contours. Spleen is normal in size. No adrenal nodules. Both kidneys are normal in size, without hydronephrosis or nephrolithiasis. Peritoneum and bowel: Small and large bowel loops are normal in caliber and wall thickness. A few diverticula are seen in the colon without signs of acute diverticulitis. No free fluid or air. Nodes and vessels: No retroperitoneal or mesenteric adenopathy by size criteria. Aorta and inferior vena cava are normal in size. Moderate aortic atherosclerotic calcifications. Miscellaneous: Small periumbilical hernia contains fat and 1 wall of a loop of small bowel. No signs of bowel obstruction. PELVIS: Genitourinary: Bladder wall thickness is normal. Miscellaneous: No inguinal hernias or adenopathy. Bones: No suspicious bony lesions. No acute vertebral body compression fractures. Postsurgical changes are partially imaged in the left proximal humerus. Chronic posttraumatic changes in the left lateral ribs. Multilevel degenerative changes are seen in the spine. Vertebroplasty changes are noted at L4. IMPRESSION: 1. Small bilateral pleural effusions with atelectasis versus consolidation of the lung bases. Chronic bandlike scarring is seen in the lingula. 2. Mild cardiomegaly. Moderate to severe coronary artery calcifications. 3. No acute inflammatory process is identified in the abdomen or pelvis. 4. Mild colonic diverticulosis without signs of acute diverticulitis. Approved by: Jarrett Lee M.D. on 03/02/2023 at 17:33
--- NOTE | 2023-03-02 16:45 | ED.SOB ---
HPI - SOB/Dyspnea <Amish Silverio MD - Last Filed: 03/05/23 13:25> General Chief Complaint: Shortness of Breath/Dyspnea Stated Complaint: trouble breathing for t-7/worsening today/SOB Time Seen by Provider: 03/02/23 16:37 Source: patient Mode of arrival: Wheelchair History of Present Illness HPI Narrative: Patient here with one-week for complaints of shortness of breath. Denies any chest pain. He has to sit up to try to sleep. Worse with lying flat. Patient uncertain of any history of CHF. Patient does have history of AFib/a flutter and is on Xarelto. Denies any chest pain or palpitations. Patient has had ongoing chronic bilateral leg edema which is not new. Abdominal girth and size is not changed. was sick with upper respiratory infection last week and has improved. Patient has not had any fever cough. Is not on any home O2. But does appear dyspneic with talking. Related Data Home Medications Medication Instructions Recorded Confirmed cholecalciferol (vitamin D3) 50 50 mcg PO DAILY 05/05/22 03/02/23 mcg (2,000 unit) capsule cyanocobalamin (vitamin B-12) 1,000 mcg PO DAILY 05/05/22 03/02/23 1,000 mcg capsule glucosamine-chondroitin [Osteo See Rx Instructions PO .COMPLEX 05/05/22 03/02/23 Bi-Flex] metoprolol tartrate 50 mg tablet 50 mg PO TID 05/05/22 03/02/23 venlafaxine 225 mg tablet,extended 225 mg PO DAILY 05/05/22 03/02/23 release 24 hr rivaroxaban 20 mg tablet (Xarelto) 20 mg PO DAILY 11/03/22 03/02/23 furosemide 40 mg PO DAILY 03/02/23 03/02/23 Previous Rx's Medication Instructions Recorded lisinopril 10 mg tablet 10 mg PO DAILY #90 tabs 06/10/22 allopurinol 300 mg tablet 300 mg PO DAILY #90 tabs 07/12/22 atorvastatin 10 mg tablet 5 mg PO DAILY #45 tabs 11/24/22 potassium chloride 20 mEq 20 meq PO DAILY #30 tabs 03/03/23 tablet,extended release Allergies Allergy/AdvReac Type Severity Reaction Status Date / Time adhesive tape [ADHESIVE TAPE] AdvReac Intermediate itching Verified 03/02/23 17:37 Review of Systems <Amish Silverio MD - Last Filed: 03/05/23 13:25> Review of Systems Narrative: GENERAL: negative chills, fatigue, malaise, fever, sweats. HEENT: negative sinus pain, ear pain, sore throat RESPIRATORY: Positive dyspnea, negative cough CARDIOVASCULAR: negative chest pain, palpitations GASTROINTESTINAL: negative nausea, vomiting, abdominal pain : negative dysuria, frequency, hematuria MUSCULOSKELETAL: negative muscle or bony pain SKIN: negative rash, skin lesions NEUROLOGIC: negative weakness, numbness ROS Unobtainable: All systems reviewed & are unremarkable except as noted in HPI and below Patient History <Amish Silverio MD - Last Filed: 03/05/23 13:25> Medical History Abnormal chest xray (Unknown) Acne Alcohol use disorder Cerebrovascular disease Chickenpox (Unknown) Chronic a-fib (Unknown) Chronic anticoagulation Chronic back pain (~2007) Coronary artery disease Dementia Depression, major, recurrent Erectile dysfunction (Unknown) Essential hypertension Fractures Frequent falls Gout (~2016) Hearing loss (~2019) History of CVA (cerebrovascular accident) (~2015) Hypertension (Unknown) Left atrial thrombus Left hemiparesis Low testosterone in male (~2015) Measles Mixed hyperlipidemia Mumps Paroxysmal atrial fibrillation Plantar warts Primary osteoarthritis involving multiple joints Skin ulcer of left great toe Stroke (~2015) Transient ischemic attack (~2014) Vision disorder Surgical History Anesthesia History of surgery on arm (~2017) History of tonsillectomy Status post knee surgery Family History Father No problems noted. Mother Adopted Social History household members: spouse Smoking Status: Former smoker alcohol intake: former Smoking Status: Former smoker alcohol intake frequency: 3 or more drinks per day Alcohol type: beer and hard liquor Substance Use Type: does not use Exam <Amish Silverio MD - Last Filed: 03/05/23 13:25> Narrative Exam Narrative: GENERAL: in no distress, not toxic not dyspneic HEAD: Normocephalic. EYES: Pupils equal round ENT: Mucous membranes moist. NECK: Trachea midline. CARDIOVASCULAR: Irregular irregular rate and rhythm RESPIRATORY: Clear to auscultation. Breath sounds equal bilaterally. No wheezes, rales, or rhonchi. Patient is speaking near full sentences. But is not dyspneic. GASTROINTESTINAL: Abdomen soft, non-tender, patient has large abdominal girth but is nontender. No peritoneal signs. EXTREMITIES: No gross deformities. There are bilateral symmetric 3+ pedal and ankle and leg edema. NEURO: AOx4. SKIN: Warm and dry PSYCH: Not anxious, is cooperative Initial Vital Signs Initial Vital Signs: Vital Signs Temperature 97.5 F L 03/02/23 13:37 Pulse Rate 77 03/02/23 13:37 Respiratory Rate 30 H 03/02/23 13:37 Blood Pressure 184/86 H 03/02/23 13:37 Pulse Oximetry 99 03/02/23 13:37 Oxygen Delivery Method Room Air 03/02/23 13:37 <Verito Gee DO - Last Filed: 03/03/23 06:09> Initial Vital Signs Initial Vital Signs: Vital Signs Temperature 97.5 F L 03/02/23 13:37 Pulse Rate 77 03/02/23 13:37 Respiratory Rate 30 H 03/02/23 13:37 Blood Pressure 184/86 H 03/02/23 13:37 Pulse Oximetry 99 03/02/23 13:37 Oxygen Delivery Method Room Air 03/02/23 13:37 Course <Amish Silverio MD - Last Filed: 03/05/23 13:25> Orders Ordered: Discontinued Medications Acetaminophen (Acetaminophen 325 Mg Tablet) 650 mg PO Q6H PRN PRN Reason: Fever/Mild Pain (1-3) Allopurinol (Allopurinol 100 Mg Tablet) 300 mg PO DAILY [facility] Last Admin: 03/03/23 08:32 Dose: 300 mg Documented By: ANGELICA Atorvastatin Calcium (Atorvastatin 20 Mg Tablet) 5 mg PO BEDTIME [facility] Folic Acid (Folic Acid 1 Mg Tablet) 1 mg PO DAILY [facility] Last Admin: 03/03/23 08:32 Dose: 1 mg Documented By: ANGELICA Furosemide (Furosemide 40 Mg/4 Ml Vial) 40 mg IV NOW ONE Stop: 03/02/23 18:46 Last Admin: 03/02/23 18:58 Dose: 40 mg Documented By: NEERAJ Furosemide (Furosemide 40 Mg/4 Ml Vial) 40 mg IV 0800,1700 [facility] Last Admin: 03/03/23 17:20 Dose: 40 mg Documented By: Admin: 03/03/23 08:31 Dose: 40 mg Documented By: ANGELICA Sodium Chloride (Normal Saline 0.9%) 500 mls @ 1,000 mls/hr IV BOLUS ONE Stop: 03/02/23 18:36 Last Infusion: 03/02/23 19:27 Dose: 0 mls/hr Documented By: Admin: 03/02/23 18:35 Dose: 1,000 mls/hr Documented By: NEERAJ Lisinopril (Lisinopril 10 Mg Tablet) 10 mg PO DAILY [facility] Last Admin: 03/03/23 08:32 Dose: 10 mg Documented By: ANGELICA Lorazepam (Lorazepam 1 Mg Tablet) 0 mg PO CIWAPRN PRN; Protocol PRN Reason: Alcohol Withdrawal Lorazepam (Lorazepam 2 Mg/Ml Inj) 0 mg IV CIWAPRN PRN; Protocol PRN Reason: Alcohol Withdrawal Metoprolol Tartrate (Metoprolol Ir 50 Mg Tablet) 50 mg PO TID [facility] Last Admin: 03/03/23 15:15 Dose: 50 mg Documented By: Admin: 03/03/23 08:32 Dose: 50 mg Documented By: Admin: 03/02/23 22:56 Dose: 50 mg Documented By: SHANTELL Multivitamins (Multivitamin 1 Tablet) 1 tab PO DAILY [facility] Last Admin: 03/03/23 08:32 Dose: 1 tab Documented By: ANGELICA Non-Formulary Medication (Allopurinol) 300 mg PO DAILY [facility] Non-Formulary Medication (Atorvastatin) 5 mg PO DAILY [facility] Ondansetron HCl (Ondansetron 4 Mg/2 Ml Inj) 4 mg IV Q8HR PRN PRN Reason: Nausea And Vomiting Ondansetron HCl (Ondansetron 4 Mg Odt) 4 mg PO Q8HR PRN PRN Reason: Nausea And Vomiting Quetiapine Fumarate (Quetiapine 25 Mg Tablet) 25 mg PO BEDTIME [facility] Rivaroxaban (Rivaroxaban 10 Mg Tablet) 20 mg PO DAILY [facility] Last Admin: 03/03/23 08:32 Dose: 20 mg Documented By: ANGELICA Thiamine HCl (Thiamine 100 Mg Tablet) 100 mg PO DAILY [facility] Stop: 03/06/23 09:01 Last Admin: 03/03/23 08:32 Dose: 100 mg Documented By: ANGELICA Venlafaxine HCl (Venlafaxine Er 75 Mg Cap) 225 mg PO DAILY [facility] Last Admin: 03/03/23 08:32 Dose: 225 mg Documented By: ANGELICA Vital Signs Vital signs: Vital Signs - 8 hr 03/02/23 13:37 03/02/23 15:06 03/02/23 15:08 Temperature 97.5 F L Pulse Rate 77 Respiratory Rate 30 H Blood Pressure 184/86 H 185/88 H Pulse Oximetry 99 97 Oxygen Delivery Method Room Air Room Air 03/02/23 15:08 03/02/23 15:30 03/02/23 15:39 Temperature Pulse Rate 67 65 79 Respiratory Rate Blood Pressure Pulse Oximetry 96 96 95 Oxygen Delivery Method Room Air Room Air Room Air 03/02/23 15:40 03/02/23 15:42 03/02/23 15:42 Temperature Pulse Rate 67 70 Respiratory Rate Blood Pressure 186/101 H Pulse Oximetry 96 97 Oxygen Delivery Method Room Air Room Air 03/02/23 16:00 03/02/23 16:01 03/02/23 16:01 Temperature Pulse Rate 73 71 Respiratory Rate 18 17 Blood Pressure 177/82 H Pulse Oximetry 97 98 Oxygen Delivery Method Room Air 03/02/23 16:30 03/02/23 16:30 03/02/23 17:00 Temperature Pulse Rate 73 73 Respiratory Rate 15 17 Blood Pressure 175/119 H Pulse Oximetry 96 97 Oxygen Delivery Method Room Air Room Air <Verito Gee, - Last Filed: 03/03/23 06:09> Orders Ordered: Discontinued Medications Acetaminophen (Acetaminophen 325 Mg Tablet) 650 mg PO Q6H PRN PRN Reason: Fever/Mild Pain (1-3) Allopurinol (Allopurinol 100 Mg Tablet) 300 mg PO DAILY [facility] Last Admin: 03/03/23 08:32 Dose: 300 mg Documented By: ANGELICA Atorvastatin Calcium (Atorvastatin 20 Mg Tablet) 5 mg PO BEDTIME [facility] Folic Acid (Folic Acid 1 Mg Tablet) 1 mg PO DAILY [facility] Last Admin: 03/03/23 08:32 Dose: 1 mg Documented By: ANGELICA Furosemide (Furosemide 40 Mg/4 Ml Vial) 40 mg IV NOW ONE Stop: 03/02/23 18:46 Last Admin: 03/02/23 18:58 Dose: 40 mg Documented By: NEERAJ Furosemide (Furosemide 40 Mg/4 Ml Vial) 40 mg IV 0800,1700 [facility] Last Admin: 03/03/23 17:20 Dose: 40 mg Documented By: Admin: 03/03/23 08:31 Dose: 40 mg Documented By: ANGELICA Sodium Chloride (Normal Saline 0.9%) 500 mls @ 1,000 mls/hr IV BOLUS ONE Stop: 03/02/23 18:36 Last Infusion: 03/02/23 19:27 Dose: 0 mls/hr Documented By: Admin: 03/02/23 18:35 Dose: 1,000 mls/hr Documented By: NEERAJ Lisinopril (Lisinopril 10 Mg Tablet) 10 mg PO DAILY [facility] Last Admin: 03/03/23 08:32 Dose: 10 mg Documented By: ANGELICA Lorazepam (Lorazepam 1 Mg Tablet) 0 mg PO CIWAPRN PRN; Protocol PRN Reason: Alcohol Withdrawal Lorazepam (Lorazepam 2 Mg/Ml Inj) 0 mg IV CIWAPRN PRN; Protocol PRN Reason: Alcohol Withdrawal Metoprolol Tartrate (Metoprolol Ir 50 Mg Tablet) 50 mg PO TID [facility] Last Admin: 03/03/23 15:15 Dose: 50 mg Documented By: Admin: 03/03/23 08:32 Dose: 50 mg Documented By: Admin: 03/02/23 22:56 Dose: 50 mg Documented By: SHANTELL Multivitamins (Multivitamin 1 Tablet) 1 tab PO DAILY [facility] Last Admin: 03/03/23 08:32 Dose: 1 tab Documented By: ANGELICA Non-Formulary Medication (Allopurinol) 300 mg PO DAILY [facility] Non-Formulary Medication (Atorvastatin) 5 mg PO DAILY [facility] Ondansetron HCl (Ondansetron 4 Mg/2 Ml Inj) 4 mg IV Q8HR PRN PRN Reason: Nausea And Vomiting Ondansetron HCl (Ondansetron 4 Mg Odt) 4 mg PO Q8HR PRN PRN Reason: Nausea And Vomiting Quetiapine Fumarate (Quetiapine 25 Mg Tablet) 25 mg PO BEDTIME [facility] Rivaroxaban (Rivaroxaban 10 Mg Tablet) 20 mg PO DAILY [facility] Last Admin: 03/03/23 08:32 Dose: 20 mg Documented By: ANGELICA Thiamine HCl (Thiamine 100 Mg Tablet) 100 mg PO DAILY [facility] Stop: 03/06/23 09:01 Last Admin: 03/03/23 08:32 Dose: 100 mg Documented By: ANGELICA Venlafaxine HCl (Venlafaxine Er 75 Mg Cap) 225 mg PO DAILY [facility] Last Admin: 03/03/23 08:32 Dose: 225 mg Documented By: ANGELICA Vital Signs Vital signs: Vital Signs - 8 hr 03/02/23 13:37 03/02/23 15:06 03/02/23 15:08 Temperature 97.5 F L Pulse Rate 77 Respiratory Rate 30 H Blood Pressure 184/86 H 185/88 H Pulse Oximetry 99 97 Oxygen Delivery Method Room Air Room Air 03/02/23 15:08 03/02/23 15:30 03/02/23 15:39 Temperature Pulse Rate 67 65 79 Respiratory Rate Blood Pressure Pulse Oximetry 96 96 95 Oxygen Delivery Method Room Air Room Air Room Air 03/02/23 15:40 03/02/23 15:42 03/02/23 15:42 Temperature Pulse Rate 67 70 Respiratory Rate Blood Pressure 186/101 H Pulse Oximetry 96 97 Oxygen Delivery Method Room Air Room Air 03/02/23 16:00 03/02/23 16:01 03/02/23 16:01 Temperature Pulse Rate 73 71 Respiratory Rate 18 17 Blood Pressure 177/82 H Pulse Oximetry 97 98 Oxygen Delivery Method Room Air 03/02/23 16:30 03/02/23 16:30 03/02/23 17:00 Temperature Pulse Rate 73 73 Respiratory Rate 15 17 Blood Pressure 175/119 H Pulse Oximetry 96 97 Oxygen Delivery Method Room Air Room Air MDM - SOB/Dyspnea <Amish Silverio MD - Last Filed: 03/05/23 13:25> Lab Data 03/03/23 04:07 03/03/23 04:07 Labs: Lab Results 03/02/23 03/02/23 03/02/23 Range/Units 15:39 15:39 15:39 WBC 8.3 (4.5-11.0) X10^3/uL RBC 4.63 (4.5-5.9) X10^6/uL Hgb 15.1 (13.5-17.5) g/dL Hct 46.0 (41-53) % MCV 99.4 (80-100) fL MCH 32.6 (26-34) PG MCHC 32.8 (30-36) % RDW 16.1 H (11.6-14.8) % Plt Count 173 (150-400) X10^3/uL Neut % (Auto) 69.5 (50-75) % Lymph % (Auto) 21.1 L (25-40) % Childress % (Auto) 7.4 (3-14) % Eos % (Auto) 1.2 L (2-4) % Baso % (Auto) 0.8 (0-2) % Neut # (Auto) 5700 (3265-3354) /uL Lymph # (Auto) 1700 (6984-7232) /uL Childress # (Auto) 600 (0-900) /uL Eos # (Auto) 100 (0-450) /uL Baso # (Auto) 100 (0-100) /uL PT 20.1 H (10.1-12.7) SECONDS INR 1.7 H (0.9-1.3) Sodium 137 (137-145) mmol/L Potassium 4.1 (3.4-5.1) mmol/L Chloride 98 (98-107) mmol/L Carbon Dioxide 34 H (22-32) mmol/L BUN 13 (9-20) mg/dL Creatinine 0.85 (0.66-1.25) mg/dL Estimated GFR > 60 (>60) mL/min BUN/Creatinine Ratio 15.3 (6-22) Glucose 107 (80-110) mg/dL Lactate (0.7-2.1) mmol/L Calcium 8.9 (8.4-10.2) mg/dL Total Bilirubin 1.0 (0.2-1.3) mg/dL AST 23 (17-59) IU/L ALT 24 (<50) IU/L Alkaline Phosphatase 69 (38-126) U/L Troponin I < 0.012 (0.01-0.034) ng/mL NT-Pro-B Natriuret Pep 2040 H (<125) pg/mL Total Protein 7.8 (6.3-8.2) g/dL Albumin 4.2 (3.5-5.0) g/dL Globulin 3.6 (1.7-4.1) g/dL Albumin/Globulin Ratio 1.2 (1.0-2.8) Chlamy pneumoniae PCR (Not Detect) Adenovirus (PCR) (Not Detect) B. pertussis DNA (PCR) (Not Detecte) B.parapertussis DNA PCR (Not Detecte) Coronavirus OC43 (PCR) (Not Detect) Coronavirus HKU1 (PCR) (Not Detect) Coronavirus 229E (PCR) (Not Detect) SARS-CoV-2 (PCR) (Negative) Coronavirus NL63 (PCR) (Not Detect) Human Metapneumovir PCR (Not Detect) Influenza Type A (PCR) (Not Detect) Influenza Type B (PCR) (Not Detect) M. pneumoniae (PCR) (Not Detect) Parainfluenza 1 (PCR) (Not Detect) Parainfluenza 2 (PCR) (Not Detect) Parainfluenza 3 (PCR) (Not Detect) Parainfluenza 4 (PCR) (Not Detect) RSV (PCR) (Not Detect) Entero/Rhino (PCR) (Not Detect) 03/02/23 03/02/23 03/02/23 Range/Units 15:39 16:15 17:00 WBC (4.5-11.0) X10^3/uL RBC (4.5-5.9) X10^6/uL Hgb (13.5-17.5) g/dL Hct (41-53) % MCV (80-100) fL MCH (26-34) PG MCHC (30-36) % RDW (11.6-14.8) % Plt Count (150-400) X10^3/uL Neut % (Auto) (50-75) % Lymph % (Auto) (25-40) % Childress % (Auto) (3-14) % Eos % (Auto) (2-4) % Baso % (Auto) (0-2) % Neut # (Auto) (9608-1795) /uL Lymph # (Auto) (5295-4113) /uL Childress # (Auto) (0-900) /uL Eos # (Auto) (0-450) /uL Baso # (Auto) (0-100) /uL PT (10.1-12.7) SECONDS INR (0.9-1.3) Sodium (137-145) mmol/L Potassium (3.4-5.1) mmol/L Chloride (98-107) mmol/L Carbon Dioxide (22-32) mmol/L BUN (9-20) mg/dL Creatinine (0.66-1.25) mg/dL Estimated GFR (>60) mL/min BUN/Creatinine Ratio (6-22) Glucose (80-110) mg/dL Lactate 1.1 (0.7-2.1) mmol/L Calcium (8.4-10.2) mg/dL Total Bilirubin (0.2-1.3) mg/dL AST (17-59) IU/L ALT (<50) IU/L Alkaline Phosphatase (38-126) U/L Troponin I (0.01-0.034) ng/mL NT-Pro-B Natriuret Pep (<125) pg/mL Total Protein (6.3-8.2) g/dL Albumin (3.5-5.0) g/dL Globulin (1.7-4.1) g/dL Albumin/Globulin Ratio (1.0-2.8) Chlamy pneumoniae PCR Not detected (Not Detect) Adenovirus (PCR) Not detected (Not Detect) B. pertussis DNA (PCR) Not detected (Not Detecte) B.parapertussis DNA PCR Not detected (Not Detecte) Coronavirus OC43 (PCR) Not detected (Not Detect) Coronavirus HKU1 (PCR) Not detected (Not Detect) Coronavirus 229E (PCR) Not detected (Not Detect) SARS-CoV-2 (PCR) Negative Not detected (Negative) Coronavirus NL63 (PCR) Not detected (Not Detect) Human Metapneumovir PCR Not detected (Not Detect) Influenza Type A (PCR) Not detected (Not Detect) Influenza Type B (PCR) Not detected (Not Detect) M. pneumoniae (PCR) Not detected (Not Detect) Parainfluenza 1 (PCR) Not detected (Not Detect) Parainfluenza 2 (PCR) Not detected (Not Detect) Parainfluenza 3 (PCR) Not detected (Not Detect) Parainfluenza 4 (PCR) Not detected (Not Detect) RSV (PCR) Not detected (Not Detect) Entero/Rhino (PCR) Not detected (Not Detect) Imaging Data Chest x-ray: Radiologist's Impression: [address] [address] XRay Report Signed Patient: Panchito Hui MR#: [id number] : 1950 Acct:[id number] Age/Sex: 72 / M Date of Service: 03/02/23 Loc: ED Accession Number: [id number] ?? Procedure: XR chest 1V Ordering Provider: Amish Silverio MD PROCEDURE:? XR CHEST 1V ? INDICATIONS:? Shortness of breath ? TECHNIQUE:? One view of the chest was acquired.? ? COMPARISON:? [facility], CHEST 1 VIEW, 09/20/2017, 16:49. ? FINDINGS:? ? Surgical changes and devices:? None.? ? Lungs and pleura:? Patchy bibasilar atelectasis.? No pleural effusions or pneumothorax.? ? Mediastinum:? Mediastinal contours appear normal.? Heart size is normal.? ? Bones and chest wall:? No suspicious bony lesions.? Old left rib fractures.? Overlying soft tissues appear unremarkable.? ? IMPRESSION:? Patchy bibasilar atelectasis. ? ? Dictated by: Shane Hernández M.D. on 03/02/2023 at 14:40 ? ? Approved by: Shane Hernández M.D. on 03/02/2023 at 14:40 ? CT chest abdomen pelvis: Radiologist's Impression: [place] [address] CT Scan Report Signed Patient: Panchito Hui MR#: [id number] : 1950 Acct:[id number] Age/Sex: 72 / M Date of Service: 03/02/23 Loc: ED Accession Number: [id number] ?? Procedure: CT chest abd pel wo con Ordering Provider: Amish Silverio MD PROCEDURE:? CT CHEST ABD PEL WO CON ? INDICATIONS:? Sepsis ? TECHNIQUE:? After the administration of oral contrast, 5 mm thick sections acquired from the lung apices to the symphysis pubis.? 5 mm thick coronal and sagittal reformats acquired, with additional 7 mm coronal MIP reformats through the lungs.? For radiation dose reduction, the following was used:? automated exposure control, adjustment of mA and/or kV according to patient size.? ? COMPARISON:? [facility], CT, CT ANGIO CHEST, 10/20/2022, 9:31.? [facility], XR CHEST 1V, 03/02/2023, 14:10. ? FINDINGS:? Image quality:? Excellent.? ? CHEST:? Lungs and pleura:? Small bilateral pleural effusions, slightly greater on the right than on the left with atelectasis of the adjacent lung bases.? No pneumothorax.? Chronic scarring is seen in the lingula.? Central and peripheral airways are patent are normal in caliber.? ? Mediastinum:? Heart size is mildly enlarged.? Trace pericardial fluid is most likely physiologic.? Moderate to severe coronary artery calcifications.? No mediastinal adenopathy by CT size criteria.? Thoracic aorta and central pulmonary arteries are normal in size.? Esophagus is normal in caliber.? No hiatal hernia.? ? Chest wall:? No axillary or supraclavicular adenopathy by size criteria.? A punctate calcified right thyroid nodule does not require dedicated imaging follow-up. ? ? ABDOMEN:? Solid organs:? Liver is normal in size.? Gallbladder is unremarkable.? Pancreas is normal in contours.? Spleen is normal in size.? No adrenal nodules.? Both kidneys are normal in size, without hydronephrosis or nephrolithiasis.? ? Peritoneum and bowel:? Small and large bowel loops are normal in caliber and wall thickness.? A few diverticula are seen in the colon without signs of acute diverticulitis.? No free fluid or air.? ? Nodes and vessels:? No retroperitoneal or mesenteric adenopathy by size criteria.? Aorta and inferior vena cava are normal in size.? Moderate aortic atherosclerotic calcifications. ? Miscellaneous:? Small periumbilical hernia contains fat and 1 wall of a loop of small bowel.? No signs of bowel obstruction. ? ? PELVIS:? Genitourinary:? Bladder wall thickness is normal.? ? Miscellaneous:? No inguinal hernias or adenopathy.? ? Bones:? No suspicious bony lesions.? No acute vertebral body compression fractures.? Postsurgical changes are partially imaged in the left proximal humerus.? Chronic posttraumatic changes in the left lateral ribs.? Multilevel degenerative changes are seen in the spine.? Vertebroplasty changes are noted at L4.? ? IMPRESSION:? 1. Small bilateral pleural effusions with atelectasis versus consolidation of the lung bases.? Chronic bandlike scarring is seen in the lingula. 2. Mild cardiomegaly.? Moderate to severe coronary artery calcifications. 3. No acute inflammatory process is identified in the abdomen or pelvis. 4. Mild colonic diverticulosis without signs of acute diverticulitis.? Approved by: Jarrett Lee M.D. on 03/02/2023 at 17:33? [facility] Narrative Medical decision making narrative: Patient here with one-week for complaints of shortness of breath. Denies any chest pain. He has is set up to try to sleep. Worse with lying flat. Patient uncertain of any history of CHF. Patient does have history of AFib/a flutter and is on Xarelto. Denies any chest pain or palpitations. Patient has had ongoing chronic bilateral leg edema which is not new. Abdominal girth and size is not changed. was sick with upper respiratory infection last week and has improved. Patient has not had any fever cough. Is not on any home O2. But does appear dyspneic with talking. After history and exam CBC CMP PT PTT INR troponin BNP chest x-ray EKG viral swab [facility] CC: Shortness of breath Complicating co-morbidities: History atrial fibrillation Data collected from: Patient and Medical records reviewed: Echocardiogram April 27, 2022 done here ejection fraction 55% Differential considered: Includes but not limited to atrial fibrillation atrial flutter congestive heart failure [place] non-STEMI Exam documented above, pertinent findings include: Bilateral leg ankle foot edema Lab Test results independently reviewed as above. Pertinent findings: WBC 8.3 hemoglobin 15.1 PT 20.1 INR 1.7 sodium 137 potassium 4.1 BUN 13 creatinine 0.85 GFR greater than 60 troponin less than 0.012 BNP 2040 COVID negative Independently reviewed EKG atrial fibrillation rate [address] elevation or depression Imaging studies independently reviewed: Chest x-ray bibasilar atelectasis CT chest abdomen pelvis small bilateral pleural effusions versus consolidation in the lung. Mild cardiomegaly Consultations: 6:00 p.m.. Spoke with hospitalist dr ahmpton, will see patient for admission. He would like CT PE protocol CT angiogram Treatments: lasix Re-evaluations: Spoke with patient does agree for admission Discussion: Appropriate for admission, patient will need continued monitoring and likely treatment for CHF. Diagnosis: CHF 6:00 p.m.. Nusrat: Sign out to Dr Gee, hospitalist will see patient for admission. CT angiogram chest is pending. CT angio shows more blood emboli, labs, EKG imaging were reviewed discussed with Dr. Hampton who accepts for observation. Lasix 40mg IV given to patient. <Verito Gee, DO - Last Filed: 03/03/23 06:09> Lab Data Labs: Lab Results 03/02/23 03/02/23 03/02/23 Range/Units 15:39 15:39 15:39 WBC 8.3 (4.5-11.0) X10^3/uL RBC 4.63 (4.5-5.9) X10^6/uL Hgb 15.1 (13.5-17.5) g/dL Hct 46.0 (41-53) % MCV 99.4 (80-100) fL MCH 32.6 (26-34) PG MCHC 32.8 (30-36) % RDW 16.1 H (11.6-14.8) % Plt Count 173 (150-400) X10^3/uL Neut % (Auto) 69.5 (50-75) % Lymph % (Auto) 21.1 L (25-40) % Childress % (Auto) 7.4 (3-14) % Eos % (Auto) 1.2 L (2-4) % Baso % (Auto) 0.8 (0-2) % Neut # (Auto) 5700 (2202-2361) /uL Lymph # (Auto) 1700 (3867-6016) /uL Childress # (Auto) 600 (0-900) /uL Eos # (Auto) 100 (0-450) /uL Baso # (Auto) 100 (0-100) /uL PT 20.1 H (10.1-12.7) SECONDS INR 1.7 H (0.9-1.3) Sodium 137 (137-145) mmol/L Potassium 4.1 (3.4-5.1) mmol/L Chloride 98 (98-107) mmol/L Carbon Dioxide 34 H (22-32) mmol/L BUN 13 (9-20) mg/dL Creatinine 0.85 (0.66-1.25) mg/dL Estimated GFR > 60 (>60) mL/min BUN/Creatinine Ratio 15.3 (6-22) Glucose 107 (80-110) mg/dL Lactate (0.7-2.1) mmol/L Calcium 8.9 (8.4-10.2) mg/dL Total Bilirubin 1.0 (0.2-1.3) mg/dL AST 23 (17-59) IU/L ALT 24 (<50) IU/L Alkaline Phosphatase 69 (38-126) U/L Troponin I < 0.012 (0.01-0.034) ng/mL NT-Pro-B Natriuret Pep 2040 H (<125) pg/mL Total Protein 7.8 (6.3-8.2) g/dL Albumin 4.2 (3.5-5.0) g/dL Globulin 3.6 (1.7-4.1) g/dL Albumin/Globulin Ratio 1.2 (1.0-2.8) Chlamy pneumoniae PCR (Not Detect) Adenovirus (PCR) (Not Detect) B. pertussis DNA (PCR) (Not Detecte) B.parapertussis DNA PCR (Not Detecte) Coronavirus OC43 (PCR) (Not Detect) Coronavirus HKU1 (PCR) (Not Detect) Coronavirus 229E (PCR) (Not Detect) SARS-CoV-2 (PCR) (Negative) Coronavirus NL63 (PCR) (Not Detect) Human Metapneumovir PCR (Not Detect) Influenza Type A (PCR) (Not Detect) Influenza Type B (PCR) (Not Detect) M. pneumoniae (PCR) (Not Detect) Parainfluenza 1 (PCR) (Not Detect) Parainfluenza 2 (PCR) (Not Detect) Parainfluenza 3 (PCR) (Not Detect) Parainfluenza 4 (PCR) (Not Detect) RSV (PCR) (Not Detect) Entero/Rhino (PCR) (Not Detect) 03/02/23 03/02/23 03/02/23 Range/Units 15:39 16:15 17:00 WBC (4.5-11.0) X10^3/uL RBC (4.5-5.9) X10^6/uL Hgb (13.5-17.5) g/dL Hct (41-53) % MCV (80-100) fL MCH (26-34) PG MCHC (30-36) % RDW (11.6-14.8) % Plt Count (150-400) X10^3/uL Neut % (Auto) (50-75) % Lymph % (Auto) (25-40) % [place] % (Auto) (3-14) % Eos % (Auto) (2-4) % Baso % (Auto) (0-2) % Neut # (Auto) (7573-5741) /uL Lymph # (Auto) (2061-2178) /uL [place] # (Auto) (0-900) /uL Eos # (Auto) (0-450) /uL Baso # (Auto) (0-100) /uL PT (10.1-12.7) SECONDS INR (0.9-1.3) Sodium (137-145) mmol/L Potassium (3.4-5.1) mmol/L Chloride (98-107) mmol/L Carbon Dioxide (22-32) mmol/L BUN (9-20) mg/dL Creatinine (0.66-1.25) mg/dL Estimated GFR (>60) mL/min BUN/Creatinine Ratio (6-22) Glucose (80-110) mg/dL Lactate 1.1 (0.7-2.1) mmol/L Calcium (8.4-10.2) mg/dL Total Bilirubin (0.2-1.3) mg/dL AST (17-59) IU/L ALT (<50) IU/L Alkaline Phosphatase (38-126) U/L Troponin I (0.01-0.034) ng/mL NT-Pro-B Natriuret Pep (<125) pg/mL Total Protein (6.3-8.2) g/dL Albumin (3.5-5.0) g/dL Globulin (1.7-4.1) g/dL Albumin/Globulin Ratio (1.0-2.8) Chlamy pneumoniae PCR Not detected (Not Detect) Adenovirus (PCR) Not detected (Not Detect) B. pertussis DNA (PCR) Not detected (Not Detecte) B.parapertussis DNA PCR Not detected (Not Detecte) Coronavirus OC43 (PCR) Not detected (Not Detect) Coronavirus HKU1 (PCR) Not detected (Not Detect) Coronavirus 229E (PCR) Not detected (Not Detect) SARS-CoV-2 (PCR) Negative Not detected (Negative) Coronavirus NL63 (PCR) Not detected (Not Detect) Human Metapneumovir PCR Not detected (Not Detect) Influenza Type A (PCR) Not detected (Not Detect) Influenza Type B (PCR) Not detected (Not Detect) M. pneumoniae (PCR) Not detected (Not Detect) Parainfluenza 1 (PCR) Not detected (Not Detect) Parainfluenza 2 (PCR) Not detected (Not Detect) Parainfluenza 3 (PCR) Not detected (Not Detect) Parainfluenza 4 (PCR) Not detected (Not Detect) RSV (PCR) Not detected (Not Detect) Entero/Rhino (PCR) Not detected (Not Detect) MDM Narrative Medical decision making narrative: Patient here with one-week for complaints of shortness of breath. Denies any chest pain. He has is set up to try to sleep. Worse with lying flat. Patient uncertain of any history of CHF. Patient does have history of AFib/a flutter and is on Xarelto. Denies any chest pain or palpitations. Patient has had ongoing chronic bilateral leg edema which is not new. Abdominal girth and size is not changed. was sick with upper respiratory infection last week and has improved. Patient has not had any fever cough. Is not on any home O2. But does appear dyspneic with talking. After history and exam CBC CMP PT PTT INR troponin BNP chest x-ray EKG viral swab [facility] CC: Shortness of breath Complicating co-morbidities: History atrial fibrillation Data collected from: Patient and Medical records reviewed: Echocardiogram April 27, 2022 done here ejection fraction 55% Differential considered: Includes but not limited to atrial fibrillation atrial flutter congestive heart failure [place] non-STEMI Exam documented above, pertinent findings include: Bilateral leg ankle foot edema Lab Test results independently reviewed as above. Pertinent findings: WBC 8.3 hemoglobin 15.1 PT 20.1 INR 1.7 sodium 137 potassium 4.1 BUN 13 creatinine 0.85 GFR greater than 60 troponin less than 0.012 BNP 2039 COVID negative Independently reviewed EKG atrial fibrillation rate [address] elevation or depression Imaging studies independently reviewed: Chest x-ray bibasilar atelectasis CT chest abdomen pelvis small bilateral pleural effusions versus consolidation in the lung. Mild cardiomegaly Consultations: 6:00 p.m.. Spoke with hospitalist dr hampton, will see patient for admission. He would like CT PE protocol CT angiogram Treatments: Re-evaluations: Discussion: Diagnosis: 6:00 p.m.. Alyssaick: Sign out to Dr Gee, hospitalist will see patient for admission. CT angiogram chest is pending. CT angio shows more blood emboli, labs, EKG imaging were reviewed discussed with Dr. Hampton who accepts for observation. Lasix 40mg IV given to patient. Discharge Plan Departure Patient Disposition: Admitted as Observation Clinical Impression: CHF (congestive heart failure) Admit Date/Time: 03/02/23 18:49 Admit Provider: Steven Hampton
--- NOTE | 2023-03-02 18:06 | DI.CT.S_ITS ---
PROCEDURE: CT ANGIO CHEST PE PROTOCOL INDICATIONS: Dyspnea TECHNIQUE: After the administration of intravenous contrast, 2 mm thick sections acquired from the pulmonary apices to the posterior costophrenic angles. 3-dimensional maximum intensity projection (MIP) coronal and sagittal reformats were then acquired through the thorax. For radiation dose reduction, the following was used: automated exposure control, adjustment of mA and/or kV according to patient size. COMPARISON: [facility], CT, CT CHEST ABD PEL WO CON, 03/02/2023, 16:51. FINDINGS: Image quality: Excellent. Pulmonary arteries: Pulmonary arteries are normal in size, and demonstrate no intraluminal filling defects to suggest central pulmonary embolism. Lungs and pleura: Small bilateral pleural effusions, greater on the right than on the left. Atelectasis of the adjacent lung bases is seen. Chronic bandlike atelectasis or scarring is seen in the lingula. No new pulmonary opacity. No pneumothorax. Central and peripheral airways are patent. Mediastinum: Heart size is mildly enlarged, without pericardial effusion. Moderate to severe coronary artery calcifications. No mediastinal or hilar adenopathy. Thoracic aorta is normal in caliber and enhancement. Esophagus is normal in caliber, without hiatal hernia. Bones and chest wall: No suspicious bony lesions. Multilevel degenerative changes are seen in the thoracic spine. Punctate calcified thyroid nodule does not require follow-up. No axillary or supraclavicular adenopathy. Abdomen: Reflux of contrast material is seen within the hepatic veins. A 3.4 cm circumscribed fluid attenuation lesion is seen in the subcutaneous tissues at the lateral aspect of the upper abdomen, most likely a sebaceous cyst. IMPRESSION: 1. No acute pulmonary embolus. 2. Bilateral pleural effusions with atelectasis of the adjacent lung bases. 3. [id number] cardiomegaly. Moderate to severe coronary artery calcifications. Approved by: Jarrett Lee M.D. on 03/02/2023 at 18:32
[2023-03-02 18:11] LABS: Adenovirus Not Detected (Not Detect); B. parapertussis Not Detected (Not Detecte); Bordetella pertussis Not Detected (Not Detecte); Chlamydophila pneumoniae Not Detected (Not Detect); Coronavirus 229E Not Detected (Not Detect); Coronavirus HKU1 Not Detected (Not Detect); Coronavirus NL 63 Not Detected (Not Detect); Coronavirus OC43 Not Detected (Not Detect); Human Metapneumovirus Not Detected (Not Detect); Human Rhinovirus/Enterovirus Not Detected (Not Detect); Influenza A Not Detected (Not Detect); Influenza B Not Detected (Not Detect); Mycoplasma pneumoniae Not Detected (Not Detect); Parainfluenza Virus 1 Not Detected (Not Detect); Parainfluenza Virus 2 Not Detected (Not Detect); Parainfluenza Virus 3 Not Detected (Not Detect); Parainfluenza Virus 4 Not Detected (Not Detect); Respiratory Syncytial Virus Not Detected (Not Detect); SARS- CoV-2 Not Detected (Not Detecte)
[2023-03-02] MEDS: SODIUM CHLORIDE 0.9% 500 ML 1000 ML IV (18:35)
[2023-03-02] MEDS: FUROSEMIDE 40 MG/4 ML VIAL IV (18:58)
--- NOTE | 2023-03-02 19:51 | PC.NURSE ---
Patient's assisted pt with urinal use 2x.
--- NOTE | 2023-03-02 21:37 | PM.HP.1 ---
History of Present Illness History of Present Illness Date Patient Seen: 03/02/23 Time Patient Seen: 21:37 Date of Onset of Symptoms: 02/23/23 Chief complaint: trouble breathing for t-7/worsening today/SOB Narrative: This is a 72 year old male with PMH of dementia, prior CVA, persistent afib/flutter on AC, Depression, alcohol abuse, HTN, HLD, CAD (medically managed) who presents with worsening shortness of breath over the past week. At baseline, he can usually walk around 60 yards, but over the past week he has been worsening to the point where he cannot walk more than a couple of feet without dyspnea. He denies fevers or chills, he has had no cough or worsening leg swelling but does endorse orthopnea. He denies any chest pain, decreased appetitie, dysuria or urinary frequency, abdominal pain or leg pain. He has sleep apnea but does not wear a CPAP machine. He continues to drink daily, his endorses a probable increase in his alcohol intake over the last few months if there is any discussion about his drinking. He denies any problems related to withdrawal from alcohol in the past. His states patient has been declining more and more over the past few months. He has been having increased falls at home, and has been less and less mobile sitting instead in his recliner most of the time. She reports he has taken out a lot of credit card debt recently with worsening memory impairment and has fallen for a number of scams. She is in the process with her son of trying to remove his access to credit cards. She reports he would not be interested in any sort of rehab, and already has a home health referral. She did state that he can be verbally abusive, but she denies any physical abuse and has been previously seen by social support services. [facility] Medical History Abnormal chest xray (Unknown) Acne Alcohol use disorder Cerebrovascular disease Chickenpox (Unknown) Chronic a-fib (Unknown) Chronic anticoagulation Chronic back pain (~2007) Coronary artery disease Dementia Depression, major, recurrent Erectile dysfunction (Unknown) Essential hypertension Fractures Frequent falls Gout (~2016) Hearing loss (~2018) History of CVA (cerebrovascular accident) (~2014) Hypertension (Unknown) Left atrial thrombus Left hemiparesis Low testosterone in male (~2016) Measles Mixed hyperlipidemia Mumps Paroxysmal atrial fibrillation Plantar warts Primary osteoarthritis involving multiple joints Skin ulcer of left great toe Stroke (~2016) Transient ischemic attack (~2014) Vision disorder Surgical History Anesthesia History of surgery on arm (~2018) History of tonsillectomy Status post knee surgery Family History Father No problems noted. Mother Adopted Social History household members: spouse Smoking Status: Former smoker alcohol intake: former Meds Home Medications and Allergies Home Medications Medication Instructions Recorded Confirmed Type cholecalciferol (vitamin D3) 50 50 mcg PO DAILY 05/05/22 03/02/23 History mcg (2,000 unit) capsule cyanocobalamin (vitamin B-12) 1,000 mcg PO DAILY 05/05/22 03/02/23 History 1,000 mcg capsule glucosamine-chondroitin [Osteo See Rx Instructions PO .COMPLEX 05/05/22 03/02/23 History Bi-Flex] metoprolol tartrate 50 mg tablet 50 mg PO TID 05/05/22 03/02/23 History venlafaxine 225 mg tablet,extended 225 mg PO DAILY 05/05/22 03/02/23 History release 24 hr lisinopril 10 mg tablet 10 mg PO DAILY #90 tabs 06/10/22 03/02/23 Rx allopurinol 300 mg tablet 300 mg PO DAILY #90 tabs 07/12/22 03/02/23 Rx rivaroxaban 20 mg tablet (Xarelto) 20 mg PO DAILY 11/03/22 03/02/23 History atorvastatin 10 mg tablet 5 mg PO DAILY #45 tabs 11/24/22 03/02/23 Rx furosemide 40 mg PO DAILY 03/02/23 03/02/23 History Allergies Allergy/AdvReac Type Severity Reaction Status Date / Time adhesive tape [ADHESIVE TAPE] AdvReac Intermediate itching Verified 03/02/23 17:37 Review of Systems Review of Systems Narrative: All other systems reviewed with the patient and are negative unless otherwise stated. Exam Vital Signs (past 8 hours): - 03/02/23 15:06 03/02/23 15:08 03/02/23 15:08 Temperature Pulse Rate 67 Respiratory Rate Blood Pressure 185/88 H Pulse Oximetry 97 96 Oxygen Delivery Method Room Air Room Air 03/02/23 15:30 03/02/23 15:39 03/02/23 15:40 Temperature Pulse Rate 65 79 67 Respiratory Rate Blood Pressure Pulse Oximetry 96 95 96 Oxygen Delivery Method Room Air Room Air Room Air 03/02/23 15:42 03/02/23 15:42 03/02/23 16:00 Temperature Pulse Rate 70 73 Respiratory Rate 18 Blood Pressure 186/101 H Pulse Oximetry 97 97 Oxygen Delivery Method Room Air 03/02/23 16:01 03/02/23 16:01 03/02/23 16:30 Temperature Pulse Rate 71 Respiratory Rate 17 Blood Pressure 177/82 H 175/119 H Pulse Oximetry 98 Oxygen Delivery Method Room Air 03/02/23 16:30 03/02/23 17:00 03/02/23 17:30 Temperature Pulse Rate 73 73 73 Respiratory Rate 15 17 19 Blood Pressure Pulse Oximetry 96 97 97 Oxygen Delivery Method Room Air Room Air Room Air 03/02/23 17:54 03/02/23 17:54 03/02/23 18:00 Temperature Pulse Rate 72 70 Respiratory Rate 24 15 Blood Pressure 176/79 H Pulse Oximetry 96 97 Oxygen Delivery Method Room Air Room Air 03/02/23 18:01 03/02/23 18:01 03/02/23 18:24 Temperature Pulse Rate 68 Respiratory Rate 17 Blood Pressure 167/78 H 170/77 H Pulse Oximetry 97 Oxygen Delivery Method Room Air 03/02/23 18:24 03/02/23 18:30 03/02/23 18:30 Temperature Pulse Rate 71 76 Respiratory Rate 21 22 Blood Pressure 187/97 H Pulse Oximetry 96 94 Oxygen Delivery Method Room Air Room Air 03/02/23 19:00 03/02/23 19:01 03/02/23 19:01 Temperature Pulse Rate 79 79 Respiratory Rate 23 18 Blood Pressure 171/84 H Pulse Oximetry 96 97 Oxygen Delivery Method Room Air Room Air 03/02/23 19:30 03/02/23 19:30 03/02/23 20:00 Temperature Pulse Rate 83 80 Respiratory Rate 31 H 29 H Blood Pressure 181/130 H Pulse Oximetry 97 96 Oxygen Delivery Method Room Air Room Air 03/02/23 20:01 03/02/23 20:01 03/02/23 20:30 Temperature Pulse Rate 80 84 Respiratory Rate 34 H 38 H Blood Pressure 161/74 H Pulse Oximetry 97 96 Oxygen Delivery Method Room Air Room Air 03/02/23 20:31 03/02/23 20:31 03/02/23 21:08 Temperature 97.2 F L Pulse Rate 87 82 Respiratory Rate 24 21 Blood Pressure 159/75 H 164/71 H Pulse Oximetry 96 96 Oxygen Delivery Method Room Air Oxygen Delivery Method Room Air Narrative Exam Narrative: General:? Patient is well developed and well nourished, in no distress at this time. HEENT:? Normocephalic, atraumatic, extraocular muscles intact, oral pharynx is clear and mucous membranes are moist. Dentition is poor. Neck: supple and symmetric, trachea is midline, no cervical adenopathy. Negative for JVD Chest:? Normal AP diameter and contour without kyphoscoliosis, no tachypnea, equal chest rise bilaterally. Lungs:?Bibasilar rales without wheezing, diminished breath sounds bilateral lung bases. Cardio: RRR (flutter on monitor), no m/r/g. Abdomen: S NT ND Musculoskeletal:? Muscle strength and tone are equal within normal limits, no deformity. Extremities:bilateral chronic 1+ non-pitting edema, no joint effusions. Skin:? Pale,? Warm to touch,dry and intact without rashes, ulcerations or petechiae.? Neuro:? Alert, no focal deficits. Psych:? Patient has a well-kept appearance, appropriate affect though after my encounter he was agitated and threatening to leave. Objective ECG Impression: Atrial flutter with variable AV block as interpreted by me Labs 03/02/23 15:39 03/02/23 15:39 Labs: Laboratory Results - last 24 hr 03/02/23 03/02/23 03/02/23 15:39 15:39 15:39 WBC 8.3 RBC 4.63 Hgb 15.1 Hct 46.0 MCV 99.4 MCH 32.6 MCHC 32.8 RDW 16.1 H Plt Count 173 Neut % (Auto) 69.5 Lymph % (Auto) 21.1 L [place] % (Auto) 7.4 Eos % (Auto) 1.2 L Baso % (Auto) 0.8 Neut # (Auto) 5700 Lymph # (Auto) 1700 [place] # (Auto) 600 Eos # (Auto) 100 Baso # (Auto) 100 PT 20.1 H INR 1.7 H Sodium 137 Potassium 4.1 Chloride 98 Carbon Dioxide 34 H BUN 13 Creatinine 0.85 Estimated GFR > 60 BUN/Creatinine Ratio 15.3 Glucose 107 Lactate Calcium 8.9 Total Bilirubin 1.0 AST 23 ALT 24 Alkaline Phosphatase 69 Troponin I < 0.012 NT-Pro-B Natriuret Pep 2040 H Total Protein 7.8 Albumin 4.2 Globulin 3.6 Albumin/Globulin Ratio 1.2 Chlamy pneumoniae PCR Adenovirus (PCR) B. pertussis DNA (PCR) B.parapertussis DNA PCR Coronavirus OC43 (PCR) Coronavirus HKU1 (PCR) Coronavirus 229E (PCR) SARS-CoV-2 (PCR) Coronavirus NL63 (PCR) Human Metapneumovir PCR Influenza Type A (PCR) Influenza Type B (PCR) M. pneumoniae (PCR) Parainfluenza 1 (PCR) Parainfluenza 2 (PCR) Parainfluenza 3 (PCR) Parainfluenza 4 (PCR) RSV (PCR) Entero/Rhino (PCR) 03/02/23 03/02/23 03/02/23 15:39 16:15 17:00 WBC RBC Hgb Hct MCV MCH MCHC RDW Plt Count Neut % (Auto) Lymph % (Auto) [place] % (Auto) Eos % (Auto) Baso % (Auto) Neut # (Auto) Lymph # (Auto) [place] # (Auto) Eos # (Auto) Baso # (Auto) PT INR Sodium Potassium Chloride Carbon Dioxide BUN Creatinine Estimated GFR BUN/Creatinine Ratio Glucose Lactate 1.1 Calcium Total Bilirubin AST ALT Alkaline Phosphatase Troponin I NT-Pro-B Natriuret Pep Total Protein Albumin Globulin Albumin/Globulin Ratio Chlamy pneumoniae PCR Not detected Adenovirus (PCR) Not detected B. pertussis DNA (PCR) Not detected B.parapertussis DNA PCR Not detected Coronavirus OC43 (PCR) Not detected Coronavirus HKU1 (PCR) Not detected Coronavirus 229E (PCR) Not detected SARS-CoV-2 (PCR) Negative Not detected Coronavirus NL63 (PCR) Not detected Human Metapneumovir PCR Not detected Influenza Type A (PCR) Not detected Influenza Type B (PCR) Not detected M. pneumoniae (PCR) Not detected Parainfluenza 1 (PCR) Not detected Parainfluenza 2 (PCR) Not detected Parainfluenza 3 (PCR) Not detected Parainfluenza 4 (PCR) Not detected RSV (PCR) Not detected Entero/Rhino (PCR) Not detected Assessment & Plan Assessment & Plan narrative: This is a 72 year old male with PMH of dementia, prior CVA, persistent afib/flutter on AC, Depression, alcohol abuse, HTN, HLD, CAD (medically managed) who presents with worsening shortness of breath over the past week, admitted for presumed congestive heart failure, though despite his significant past medical history I do not see a prior diagnosis of heart failure. 1. Acute heart failure, presumed diastolic, present on admission - CXR with evidence of volume overload, along with CTA in the ER. Patient with elevated pro-BNP and clinical history consistent with heart failure. - patient reports recent echo 3-[address] Saldana, though I cannot find this in our system. Most recent EF in 05/17 with his stress testing was 59%. Have ordered full echo, though consider limited if previous report can be found. - continue furosemide 40 mg IV BID, taking 40 mg PO at home. - no prior diagnosis of heart failure than I can find in his records, though he is on an oral diuretic chronically and reports baseline exercise tolerance of 50 yards though he has a number of medical conditions that can limit his mobility. - troponin negative on admission, will check 8 hour to rule out ACS, though this is considered much less likely. 2. Alcohol abuse - reports no severe features of withdrawal in the past, though his intake has reportedly increased, he probably drinks upwards of 8 drink equivalents per day based on history. - it will be difficult to discern agitation from patient's baseline with alcohol withdrawal - [facility] protocol ordered 3. persistent atrial fibrillation / flutter - continue home AC, and metoprolol. Consider risk/benefit discussion about continuing anticoagulation given frequency of falls and continued alcohol use. 4. Depression / Dementia - continue home venlafaxine - patient became agitated and threatening to leave shortly after admission, will trial 25 mg seroquel at bedtime tonight. 5. CAD/HTN/HLD/Prior CVA/STEPHANIE, chronic - continue home medications. Code: Full, surrogate is patient's spouse and medical POA DVT: on Xarelto I have utilized all available immediate resources to obtain, update, or review the patient's current medications. Dispo: Admitted observation, may be able to discharge home tomorrow depending on response to diuresis. Consider PT/OT however patient not amenable to rehab placement per spouse. OPERATIONS EXAMINER consult ordered given complex psycho-social situation related to dementia, alcoholism, and medical needs. I have reviewed patient's previous outpatient documentation, including PCP and cardiology notes. I have reviewed patients ER documentation, imaging and lab findings, and EKG. Additional history was obtained from spouse, discussed plan of care with patient, spouse, and bedside staff. Follow up laboratory evaluations were ordered along with above imaging. Quality VTE Deep Vein Thrombosis/Pulmonary Embolism Present on Admission: No MIPS - Admit I confirm the patient?s Advance Care Plan is present, Code status is documented, Surrogate decision maker is in patient?s record [If Yes, STOP here]: Yes
--- NOTE | 2023-03-02 21:44 | DI.ECHO.S_ITS ---
[facility] +[facility]+ : : [address] : [place] : : : : [id number] : : : : Phone: [phone]+ Echocardiogram Report + + :Name: DIAMOND SELBY Study Date: 03/03/2023 Height: 76 in : :[facility] ReadingLocation: Weight: 327 lb : : Gender: Male BSA: 2.7 m2 : :: 1950 Age: 72 yrs BP: 142/76 mmHg: :Reason For Study: CONGESTIVE HEART FAILURE : :Ordering Physician: TERRENCE, : :SHERLY HILL Performed By: Marian Dumont : :Referring: SHERLY OCAMPO : + + Interpretation Summary The ejection fraction is estimated to be 60-65%. Diastolic function could not be accurately assessed due to atrial fibrillation. The right ventricle is normal in size and function. There is moderate biatrial enlargement. There is mild mitral regurgitation. Pulmonary artery pressures cannot be estimated because of the lack of a measurable TR jet velocity. The IVC is dilated (diameter is greater than 2.1 cm) yet it collapses greater than 50% with a sniff. This suggests a right atrial pressure of 8 mm Hg. There is a small left-sided pleural effusion. Compared to the prior study dated 04/27/2022, the RA pressure has increased and there is a new left pleural effusion. Procedure: A two-dimensional transthoracic echocardiogram with color flow and Doppler was performed. The study quality was technically difficult. A contrast injection of Definity was performed to improve assessment of LV function. The patient was in atrial fibrillation with heart rates between 61- 74 bpm during the exam. Left Ventricle: The left ventricle is normal in size and wall thickness. The ejection fraction is estimated to be 60-65%. Diastolic function could not be accurately assessed due to atrial fibrillation. Right Ventricle: The right ventricle is normal in size and function. Atria: There is moderate biatrial enlargement. There is no Doppler evidence for an interatrial shunt. Mitral Valve: The mitral valve leaflets appear mildly thickened, but open well. There is mild mitral annular calcification. There is mild mitral regurgitation. Aortic Valve: The aortic valve is trileaflet. The aortic valve opens well. There is no aortic valve stenosis. No aortic regurgitation is present. Tricuspid Valve: The tricuspid valve is normal in structure and function. There is trace tricuspid regurgitation. Pulmonary artery pressures cannot be estimated because of the lack of a measurable TR jet velocity. Pulmonic Valve: The pulmonic valve leaflets are thin and pliable; valve motion is normal. There is trace pulmonic regurgitation. Great Vessels: The aortic root is normal size. The dimensions of the ascending aorta are normal. The IVC is dilated (diameter is greater than 2.1 cm) yet it collapses greater than 50% with a sniff. This suggests a right atrial pressure of 8 mm Hg. Pericardium/ Pleura There is no pericardial effusion. There is a small left- sided pleural effusion. MMode/2D Measurements & Calculations LVIDd: 5.3 cm LVOT diam: 2.3 cm LVIDs: 3.8 cm Ao root diam: 3.6 cm FS: 28.3 % asc Aorta Diam: 3.3 cm IVSd: 1.0 cm LVPWd: 0.76 cm LV cline. diameter/BSA (cm/m^2): 1.9 LV sys. diameter/BSA (cm/m^2): 1.4 LA A2 area: 33.1 cm2 RA long axis: 6.6 cm LA A4 area: 31.5 cm2 RA area: 26.6 cm2 LA length (vol): 7.1 cm RA vol: 91.3 ml LA vol: 125.4 ml RA : 33.5 ml/m2 LA vol index: 45.9 ml/m2 IVC diam: 2.4 cm RVD1 (basal): 3.7 cm TAPSE: 1.6 cm Doppler Measurements & Calculations Ao V2 max: 86.6 cm/sec LVOT Max Johnson: 67.5 cm/sec Ao V2 mean: 65.4 cm/sec LV V1 max P.8 mmHg Ao max P.0 mmHg LV V1 VTI: 15.5 cm Ao mean P.8 mmHg MARION(I,D): 3.2 cm2 Ao V2 VTI: 19.2 cm MARION(V,D): 3.1 cm2 sev ratio: 0.81 MARION indexed to BSA (cm^2/m^2): 1.2 MV E max johnson: 112.2 cm/sec PA V2 max: 55.1 cm/sec MV A max johnson: 0.99 cm/sec PA V2 mean: 39.0 cm/sec MV E/A: 113.0 PA mean P.66 mmHg Med Peak E' Johnson: 6.5 cm/sec PA pr(Accel): 44.7 mmHg E/E' med: 17.3 Lat Peak E' Johnson: 10.1 cm/sec E/E' lat: 11.1 E/e' average: 14.2 MV dec time: 0.19 sec SV([facility]): 62.4 ml Reading Physician:04:30 PM
[2023-03-02] MEDS: METOPROLOL IR 50 MG TABLET PO (22:56)
[2023-03-02 23:43] LABS: Troponin I < 0.012 ng/mL (0.01-0.034)
[2023-03-03] VITALS (7 sets, daily range): BP systolic 142–179; BP diastolic 70–87; PULSE 73–92; RESP 20–22; TEMP 36.4–36.6; O2SAT 93–97
[2023-03-03 00:22] LABS: MRSA (Nasal) PCR Not Detected (Not Detect)
[2023-03-03 05:11] LABS: Add Manual Diff / Slide Review NO; Basophils Absolute Auto 0 /uL (0-100); Basophils Percent Auto 0.4 % (0-2); Eosinophils Absolute Auto 100 /uL (0-450); Eosinophils Percent Auto 1.6 % (2-4); Hematocrit 43.9 % (41-53); Hemoglobin 14.8 g/dL (13.5-17.5); Lymphocytes Absolute Auto 1300 /uL (1100-4500); Lymphocytes Percent Auto 17.9 % (25-40); Mean Corpuscular HGB Conc 33.7 % (30-36); Mean Corpuscular Hemoglobin 33.1 PG (26-34); Mean Corpuscular Volume 98.3 fL (80-100); Monocytes Absolute Auto 600 /uL (0-900); Monocytes Percent Auto 8.5 % (3-14); Neutrophils Absolute Auto 5200 /uL (1500-7000); Neutrophils Percent Auto 71.6 % (50-75); Platelet Count 146 X10^3/uL (150-400); Red Blood Cell Count 4.47 X10^6/uL (4.5-5.9); Red Cell Distribution Width 15.9 % (11.6-14.8); White Blood Cell Count 7.2 X10^3/uL (4.5-11.0)
[2023-03-03 05:16] LABS: Alanine Aminotransferase 22 IU/L (<50); Albumin Globulin Ratio 1.1 (1.0-2.8); Alkaline Phosphatase 64 U/L (38-126); Aspartate Aminotransferase 20 IU/L (17-59); BUN Creatinine Ratio 17.4 (6-22); Bilirubin Total 1.1 mg/dL (0.2-1.3); Blood Urea Nitrogen 15 mg/dL (9-20); Calcium 8.7 mg/dL (8.4-10.2); Carbon Dioxide 36 mmol/L (22-32); Chloride 96 mmol/L (98-107); Estimated Glomerular Filt Rate > 60 mL/min (>60); Globulin 3.5 g/dL (1.7-4.1); Glucose 122 mg/dL (80-110); HEMOLYSIS < 15 (0-50); Potassium 3.7 mmol/L (3.4-5.1); Sodium 137 mmol/L (137-145); Total Protein 7.5 g/dL (6.3-8.2)
--- NOTE | 2023-03-03 06:08 | PC.NURSE ---
pt admitted at 2100 last night for chf; pt SOB w/ exertion; unable to lie flat; tele shows atrial fibrillation w/ controlled rate; Pt threatened to go AMA earlier in the shift but RN and Dr Sheikh spoke w/ pt and he agreed to stay as long as siderails were left down; bed alarm on and call light in reach; pt verbalized agreement to call before getting OOB; pt exhibited significant sleep apnea, with o2 sat dropping into the mid 70s and HR dropping into 50s-60s; pt placed on o2/2l/nc and hypoxia and bradycardia resolved; CIWA-1
[2023-03-03] MEDS: FUROSEMIDE 40 MG/4 ML VIAL IV ×2 (08:31→17:20)
[2023-03-03] MEDS: THIAMINE 100 MG TABLET PO (08:32)
[2023-03-03] MEDS: METOPROLOL IR 50 MG TABLET PO ×2 (08:32→15:15)
[2023-03-03] MEDS: RIVAROXABAN 10 MG TABLET 20 MG PO (08:32)
[2023-03-03] MEDS: FOLIC ACID 1 MG TABLET PO (08:32)
[2023-03-03] MEDS: allopurinoL 100 MG TABLET 300 MG PO (08:32)
[2023-03-03] MEDS: lisinopriL 10 MG TABLET PO (08:32)
[2023-03-03] MEDS: MULTIVITAMIN 1 TABLET 1 TAB PO (08:32)
[2023-03-03] MEDS: VENLAFAXINE ER 75 MG CAP 225 MG PO (08:32)
--- NOTE | 2023-03-03 11:53 | P.PN_ITS ---
Subjective Subjective Interval history: 72-year-old gentleman with history of stroke, persistent AFib/flutter on chronic anticoagulation, depression, coronary artery disease, hyperlipidemia, hypertension, alcohol dependence and reported dementia who was admitted with acute congestive heart failure, presumed to be diastolic. Patient reports he is feeling better today with diuresis. He notes he urinated a lot all night and it has tapered off a little bit, but he notes he is due for another dose shortly. He is feeling less short of breath overall. Continues to have leg swelling. No chest pain. He was able to sleep some overnight but reports it was interrupted frequently. Exam Vital Signs (past 8 hours): - 03/03/23 04:00 03/03/23 05:00 03/03/23 07:00 Temperature 97.9 F Pulse Rate 87 Respiratory Rate 21 Blood Pressure 179/87 H Pulse Oximetry 97 95 Oxygen Delivery Method Nasal Cannula Room Air Oxygen Flow Rate 3 2 03/03/23 09:00 03/03/23 09:00 Temperature Pulse Rate 79 Respiratory Rate 22 Blood Pressure 149/70 H Pulse Oximetry 97 Oxygen Delivery Method Room Air Oxygen Flow Rate Oxygen Delivery Method Room Air Oxygen Flow Rate 2 Narrative Exam Narrative: GEN: Very pleasant middle-aged male, Alert and oriented x 3, NAD HEENT:NC, Face symmetric CHEST: Respiratory excursions symmetric, coarse but CTAB CV: Irregularly irregular, rate controlled, no M/R/G ABD: Soft, obese, NT/ND, BT present in all 4 quadrants, body habitus limits exam EXTR: warm, well perfused, no C/C, 2 to 3+ bilateral lower extremity pitting edema SKIN: warm and dry, no rash NEURO: Alert and oriented x 3, nonfocal Objective Labs 03/03/23 04:07 03/03/23 04:07 Labs: Laboratory Results - last 24 hr 03/02/23 03/02/23 03/02/23 15:39 15:39 15:39 WBC 8.3 RBC 4.63 Hgb 15.1 Hct 46.0 MCV 99.4 MCH 32.6 MCHC 32.8 RDW 16.1 H Plt Count 173 Neut % (Auto) 69.5 Lymph % (Auto) 21.1 L Early % (Auto) 7.4 Eos % (Auto) 1.2 L Baso % (Auto) 0.8 Neut # (Auto) 5700 Lymph # (Auto) 1700 Early # (Auto) 600 Eos # (Auto) 100 Baso # (Auto) 100 PT 20.1 H INR 1.7 H Sodium 137 Potassium 4.1 Chloride 98 Carbon Dioxide 34 H BUN 13 Creatinine 0.85 Estimated GFR > 60 BUN/Creatinine Ratio 15.3 Glucose 107 Lactate Calcium 8.9 Magnesium Total Bilirubin 1.0 AST 23 ALT 24 Alkaline Phosphatase 69 Troponin I < 0.012 NT-Pro-B Natriuret Pep 2040 H Total Protein 7.8 Albumin 4.2 Globulin 3.6 Albumin/Globulin Ratio 1.2 Nasal Screen MRSA (PCR) Chlamy pneumoniae PCR Adenovirus (PCR) B. pertussis DNA (PCR) B.parapertussis DNA PCR Coronavirus OC43 (PCR) Coronavirus HKU1 (PCR) Coronavirus 229E (PCR) SARS-CoV-2 (PCR) Coronavirus NL63 (PCR) Human Metapneumovir PCR Influenza Type A (PCR) Influenza Type B (PCR) M. pneumoniae (PCR) Parainfluenza 1 (PCR) Parainfluenza 2 (PCR) Parainfluenza 3 (PCR) Parainfluenza 4 (PCR) RSV (PCR) Entero/Rhino (PCR) 03/02/23 03/02/23 03/02/23 15:39 16:15 17:00 WBC RBC Hgb Hct MCV MCH MCHC RDW Plt Count Neut % (Auto) Lymph % (Auto) Early % (Auto) Eos % (Auto) Baso % (Auto) Neut # (Auto) Lymph # (Auto) Early # (Auto) Eos # (Auto) Baso # (Auto) PT INR Sodium Potassium Chloride Carbon Dioxide BUN Creatinine Estimated GFR BUN/Creatinine Ratio Glucose Lactate 1.1 Calcium Magnesium Total Bilirubin AST ALT Alkaline Phosphatase Troponin I NT-Pro-B Natriuret Pep Total Protein Albumin Globulin Albumin/Globulin Ratio Nasal Screen MRSA (PCR) Chlamy pneumoniae PCR Not detected Adenovirus (PCR) Not detected B. pertussis DNA (PCR) Not detected B.parapertussis DNA PCR Not detected Coronavirus OC43 (PCR) Not detected Coronavirus HKU1 (PCR) Not detected Coronavirus 229E (PCR) Not detected SARS-CoV-2 (PCR) Negative Not detected Coronavirus NL63 (PCR) Not detected Human Metapneumovir PCR Not detected Influenza Type A (PCR) Not detected Influenza Type B (PCR) Not detected M. pneumoniae (PCR) Not detected Parainfluenza 1 (PCR) Not detected Parainfluenza 2 (PCR) Not detected Parainfluenza 3 (PCR) Not detected Parainfluenza 4 (PCR) Not detected RSV (PCR) Not detected Entero/Rhino (PCR) Not detected 03/02/23 03/02/23 03/03/23 21:30 23:09 04:07 WBC 7.2 RBC 4.47 L Hgb 14.8 Hct 43.9 MCV 98.3 MCH 33.1 MCHC 33.7 RDW 15.9 H Plt Count 146 L Neut % (Auto) 71.6 Lymph % (Auto) 17.9 L Early % (Auto) 8.5 Eos % (Auto) 1.6 L Baso % (Auto) 0.4 Neut # (Auto) 5200 Lymph # (Auto) 1300 Early # (Auto) 600 Eos # (Auto) 100 Baso # (Auto) 0 PT INR Sodium Potassium Chloride Carbon Dioxide BUN Creatinine Estimated GFR BUN/Creatinine Ratio Glucose Lactate Calcium Magnesium Total Bilirubin AST ALT Alkaline Phosphatase Troponin I < 0.012 NT-Pro-B Natriuret Pep Total Protein Albumin Globulin Albumin/Globulin Ratio Nasal Screen MRSA (PCR) Not detected Chlamy pneumoniae PCR Adenovirus (PCR) B. pertussis DNA (PCR) B.parapertussis DNA PCR Coronavirus OC43 (PCR) Coronavirus HKU1 (PCR) Coronavirus 229E (PCR) SARS-CoV-2 (PCR) Coronavirus NL63 (PCR) Human Metapneumovir PCR Influenza Type A (PCR) Influenza Type B (PCR) M. pneumoniae (PCR) Parainfluenza 1 (PCR) Parainfluenza 2 (PCR) Parainfluenza 3 (PCR) Parainfluenza 4 (PCR) RSV (PCR) Entero/Rhino (PCR) 03/03/23 04:07 WBC RBC Hgb Hct MCV MCH MCHC RDW Plt Count Neut % (Auto) Lymph % (Auto) Early % (Auto) Eos % (Auto) Baso % (Auto) Neut # (Auto) Lymph # (Auto) Early # (Auto) Eos # (Auto) Baso # (Auto) PT INR Sodium 137 Potassium 3.7 Chloride 96 L Carbon Dioxide 36 H BUN 15 Creatinine 0.86 Estimated GFR > 60 BUN/Creatinine Ratio 17.4 Glucose 122 H Lactate Calcium 8.7 Magnesium 2.0 Total Bilirubin 1.1 AST 20 ALT 22 Alkaline Phosphatase 64 Troponin I NT-Pro-B Natriuret Pep Total Protein 7.5 Albumin 4.0 Globulin 3.5 Albumin/Globulin Ratio 1.1 Nasal Screen MRSA (PCR) Chlamy pneumoniae PCR Adenovirus (PCR) B. pertussis DNA (PCR) B.parapertussis DNA PCR Coronavirus OC43 (PCR) Coronavirus HKU1 (PCR) Coronavirus 229E (PCR) SARS-CoV-2 (PCR) Coronavirus NL63 (PCR) Human Metapneumovir PCR Influenza Type A (PCR) Influenza Type B (PCR) M. pneumoniae (PCR) Parainfluenza 1 (PCR) Parainfluenza 2 (PCR) Parainfluenza 3 (PCR) Parainfluenza 4 (PCR) RSV (PCR) Entero/Rhino (PCR) [facility] Medical History Abnormal chest xray (Unknown) Acne Alcohol use disorder Cerebrovascular disease Chickenpox (Unknown) Chronic a-fib (Unknown) Chronic anticoagulation Chronic back pain (~2007) Coronary artery disease Dementia Depression, major, recurrent Erectile dysfunction (Unknown) Essential hypertension Fractures Frequent falls Gout (~2016) Hearing loss (~2018) History of CVA (cerebrovascular accident) (~2014) Hypertension (Unknown) Left atrial thrombus Left hemiparesis Low testosterone in male (~2015) Measles Mixed hyperlipidemia Mumps Paroxysmal atrial fibrillation Plantar warts Primary osteoarthritis involving multiple joints Skin ulcer of left great toe Stroke (~2015) Transient ischemic attack (~2014) Vision disorder Surgical History Anesthesia History of surgery on arm (~2018) History of tonsillectomy Status post knee surgery Family History Father No problems noted. Mother Adopted Social History household members: spouse Smoking Status: Former smoker alcohol intake: former Assessment & Plan Assessment & Plan narrative: 1. Acute congestive heart failure, felt to be diastolic Chest x-ray done in the emergency department revealed patchy bibasilar atelect asis. CT of the chest, abdomen, and pelvis revealed small bilateral pleural effusions with atelectasis versus consolidation of the lung bases. Mild cardiomegaly, moderate to severe coronary artery calcifications. CT pulmonary angiogram revealed no acute PE. Again there was noted bilateral pleural effusions with atelectasis of the adjacent lung bases. [id number] cardiomegaly. BNP was elevated at 2040. Patient was placed on furosemide 40 mg IV b.i.d.. Overall diuresis has been 2400 cc thus far. We will continue diuresis this morning. He is feeling symptomatically improved. Await echocardiogram. Ejection fraction on nuclear stress testing in April of last year showed a normal ejection fraction estimated to be 59%. If patient continues to improve, he may be able to discharge home later today with outpatient cardiology follow-up. 2. Alcohol dependence No evidence of withdrawal thus far. Patient does reportedly drink up to 8 alcoholic beverages daily. His tin container straightener had recommended he cut down but he evidently has increased his intake over the last month secondary to worsening depression. 3. Persistent AFib/flutter Continue home anticoagulation and metoprolol. He is rate controlled. There is certainly increased risk with his alcohol use and potential falls. However given his reported previous history of stroke there is also risk for recurring stroke causing worsening debility. For now, will defer to Cardiology and/or his primary care provider 4. Coronary artery disease Presently asymptomatic. Continue his usual home medications, including metoprolol, lisinopril, atorvastatin. 5. Hypertension Blood pressures were more significantly elevated overnight in the 160s to 170s. This morning his systolic pressure is down to 149. Continue his usual home medications and diuresis. 6. Hyperlipidemia Continue atorvastatin 7. Obstructive sleep apnea Uncertain if he is on CPAP or BiPAP 8. Depression/dementia Continue home dose of venlafaxine. He is calm and cooperative this morning Code status Full Prophylaxis On Xarelto Disposition Possible discharge home later today Surrogate decision maker: Dede Hui, Spouse Quality VTE Deep Vein Thrombosis/Pulmonary Embolism Present on Admission: No
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
--- NOTE | 2023-03-04 08:27 | CM.SWNOTE ---
TRAFFIC AGENT Note Late Entry Patient discussed in rounds the morning of 03.03.23; Patient was reported as a known heavy alcohol user with no stated intention of stopping. Dr Howell's impression was that spouse had contact in the outpatient setting with social media marketer and understood patient would benefit from memory care placement however patient has been resistant Unfortunately, r/t caseload demands on 03.03.23, this TRAFFIC AGENT was unable to place call to spouse to discuss short term vs intermodal customer service care resources and patient was discharged home w/family last night, medically stable, calm and compliant and back to functional baseline GABY Knox
== END 2023-03-03 18:15 | disposition home or self-care (01) ==
LOC: ED 18:12 → AC 18:49 → ICU 21:03
PROVIDERS: Internal Medicine; Admitting Provider Internal Medicine; Emergency Provider Emergency Medicine; Family Provider Orthopaedic Surgery Foot and Ankle Surgery; PCP Internal Medicine; Referring Provider Emergency Medicine; Visit Provider Internal Medicine
DX: I50.9 Heart failure, unspecified (principal); I11.0 Hypertensive heart disease with heart failure; I48.19 Other persistent atrial fibrillation; F10.20 Alcohol dependence, uncomplicated; I25.10 Atherosclerotic heart disease of native coronary artery without angina pectoris; E78.5 Hyperlipidemia, unspecified; G47.33 Obstructive sleep apnea (adult) (pediatric); F32.A Depression, unspecified; F03.90 Unspecified dementia, unspecified severity, without behavioral disturbance, psychotic disturbance, mood disturbance, and anxiety; Z79.01 Long term (current) use of anticoagulants; Z20.822 Contact with and (suspected) exposure to COVID-19
CPT/HCPCS: 36415; 71045; 71250; 71275; 74176; 80053; 83605; 83735; 83880; 84484; 85025; 85610; 87633; 87635; 87797; 93005; 96361; 96374; 96376; 99284; 99285; C9803; G0378; C8929; J1940; Q9957

== ENCOUNTER 2023-06-24 09:31 | Emergency (ER) | payer MEDICARE, OTHER, SELFPAY ==
[2023-03-02 20:56] VITALS: BMI 39.6
[2023-06-24] VITALS (49 sets, daily range): BP systolic 85–156; BP diastolic 48–98; PULSE 104–135; RESP 16–33; TEMP 36.3–37.4; O2SAT 89–100
--- NOTE | 2023-06-24 09:50 | DI.RAD.S_ITS ---
PROCEDURE: XR CHEST 1V INDICATIONS: PREOP TECHNIQUE: One view of the chest was acquired. COMPARISON: [facility], CR, XR CHEST 1V, 03/02/2023, 14:10. FINDINGS: Surgical changes and devices: None. Lungs and pleura: Chronic left lateral mid lung scarring. Lungs are otherwise clear.. No pleural effusions or pneumothorax. Mediastinum: Mediastinal contours appear normal. Heart size is mildly enlarged, stable. Bones and chest wall: No suspicious bony lesions. Flowing osteophytes in the spine suggesting ankylosing spondylitis. Overlying soft tissues appear unremarkable. IMPRESSION: No acute process. Mild cardiomegaly, stable. Dictated by: Gunjan Jerez M.D. on 06/24/2023 at 10:37 Approved by: Gunjan Jerez M.D. on 06/24/2023 at 10:38
--- NOTE | 2023-06-24 09:50 | DI.CT.S_ITS ---
PROCEDURE: CT CERVICAL SPINE WO CON INDICATIONS: GLF, ETOH TECHNIQUE: Noncontrast 3 mm thick sections acquired from the skull base to the T4 level. Sagittal and coronal reformats were then constructed. For radiation dose reduction, the following was used: automated exposure control, adjustment of mA and/or kV according to patient size. COMPARISON: None. FINDINGS: Image quality: Decreased. There is some motion artifact.. Bones: The craniocervical junction is intact. There are prominent degenerative changes at the atlantodental interval there are large bridging anterior endplate osteophytes throughout the cervical spine. There is smooth cervical kyphosis. No posttraumatic subluxation seen. No visible vertebral body fractures. Soft tissues: Prevertebral soft tissues are normal in thickness. No paravertebral hematomas. No apical pneumothoraces. Prominent hypertrophic degenerative soft tissue thickening at both sternoclavicular joints. Heavy left carotid calcification. IMPRESSION: 1. No visible vertebral body fractures or posttraumatic subluxation. 2. Prominent bridging anterior endplate osteophytes and chronic mild cervical kyphosis. 3. Left carotid bulb calcification. Dictated by: Gunjan Jerez M.D. on 06/24/2023 at 11:21 Approved by: Gunjan Jerez M.D. on 06/24/2023 at 11:26
--- NOTE | 2023-06-24 09:50 | DI.CT.S_ITS ---
PROCEDURE: CT HEAD/BRAIN WO CON INDICATIONS: GLF, HEAD INJ, ETOH TECHNIQUE: Noncontrast 4.5 mm thick angled axial sections acquired from the foramen magnum to the vertex, with coronal and sagittal reformats. For radiation dose reduction, the following was used: automated exposure control, adjustment of mA and/or kV according to patient size. COMPARISON: [facility], CT, CT HEAD/BRAIN WO CON, 08/16/2022, 10:51. FINDINGS: Image quality: Adequate. There is mild motion artifact.. CSF spaces: Basal cisterns are patent. No extra-axial fluid collections. The ventricles are symmetric in size and shape. Brain: There are large areas of encephalomalacia and cortical volume loss in the bilateral frontoparietal regions, right larger than left. No evidence of new edema. No intracranial bleeds or masses. There is cerebral volume loss for age, with resultant ventricular and sulcal prominence. There are periventricular and deep white matter chronic small vessel ischemic changes. There is intracranial internal carotid artery atherosclerosis. Skull and face: Calvarium and visualized facial bones appear intact, without suspicious lesions. Sinuses: Visualized sinuses and mastoids are clear. IMPRESSION: 1. No acute process. 2. Larger areas of chronic appearing volume loss due to bilateral frontoparietal infarcts. Dictated by: Gunjan Jerez M.D. on 06/24/2023 at 11:15 Approved by: Gunjan Jerez M.D. on 06/24/2023 at 11:18
--- NOTE | 2023-06-24 09:50 | DI.RAD.S_ITS ---
PROCEDURE: XR HIP W PEL IF DONE RT 2V INDICATIONS: GLF, DEFORMITY TECHNIQUE: 2 views of the hip were acquired. COMPARISON: None. FINDINGS: Bones: There is a comminuted, partially seen intertrochanteric fracture with impacted distal fracture fragment. There are severe degenerative changes in both femoroacetabular joints. The right head is normally located. No visible pelvic fracture deformity. Severe lower lumbar degeneration. Soft tissues: No suspicious soft tissue calcifications or masses. IMPRESSION: 1. Impacted, comminuted, right intertrochanteric fracture. No femoroacetabular dislocation. Dictated by: Gunjan Jerez M.D. on 06/24/2023 at 10:35 Approved by: Gunjan Jerez M.D. on 06/24/2023 at 10:37
--- NOTE | 2023-06-24 09:50 | DI.CT.S_ITS ---
PROCEDURE: CT ANGIO ABD AORTA RUNOFF INDICATIONS: COLD BLUE FEET TECHNIQUE: After the administration of intravenous contrast, 2.5 mm sections acquired from T12 to the feet, with optional delayed image acquisition from the knees to the feet. 3-dimensional maximum intensity projection (MIP) coronal and sagittal reformats, and/or 3-dimensional volume rendering reformatting was then performed. For radiation dose reduction, the following was used: automated exposure control. COMPARISON: None. FINDINGS: Image quality: Excellent. VASCULATURE: Abdominal aorta: The abdominal aorta has a normal caliber with diffuse atherosclerotic calcifications. The iliac arteries have a normal caliber with diffuse atherosclerotic calcifications. Right lower extremity: The SFA, popliteal, and infrapopliteal arteries are patent. There is a hematoma between the fracture fragments measuring approximately 7 x 8 cm in diameter. No definite active extravasation is identified. Several small foci of hyperdensity are seen which are probably bone fragments not active extravasation. Left lower extremity: The visualized SFA, PFA, popliteal, and infrapopliteal arteries are patent. CHEST: Lungs and pleura: No acute airspace opacity in the visualized lung. No pleural effusions or pneumothorax. Central and peripheral airways are patent and normal in caliber. Mediastinum: Heart size is normal. The coronary arteries have atherosclerotic calcifications. No pericardial effusion. No mediastinal adenopathy by size criteria. The aorta has atherosclerosis with no aneurysmal dilatation. Esophagus is normal in caliber. No hiatal hernia. Chest wall: No chest wall mass. ABDOMEN: Liver: The liver has no mass or intrahepatic biliary ductal dilatation. Biliary: The gallbladder has no gallstones, pericholecystic fluid, gallbladder wall thickening, or surrounding inflammatory change. Pancreas: The pancreas has no mass or ductal dilatation. There is no surrounding inflammation. Spleen: Normal size. There are no masses. Adrenals: No hypertrophy or nodules. Kidneys: No obstructive calculus or hydronephrosis. No solid mass. No cystic mass. Bowel: The distal esophagus and stomach are normal. The small bowel has a normal caliber and appearance. The terminal ileum is normal. The large bowel has diverticulosis without evidence of acute diverticulitis. The appendix is normal. No free fluid or air. Nodes and vessels: No retroperitoneal or mesenteric adenopathy by size criteria. Abdominal wall: No abdominal wall mass or hernia. PELVIS: Genitourinary: The bladder has no wall thickening or mass. Bone: Multilevel degenerative changes of the thoracic and lumbar spine. There is cement consistent with prior vertebroplasty in the L4 vertebral body. Comminuted intertrochanteric and femoral neck fracture. IMPRESSION: 1. 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 2. No definite evidence of active extravasation. 3. Comminuted fracture of the right intertrochanteric femur and femoral neck with an intervening 7 x 8 cm hematoma. Dictated by: Kevin Sauceda M.D. on 06/24/2023 at 11:19 Approved by: Kevin Sauceda M.D. on 06/24/2023 at 11:36
--- NOTE | 2023-06-24 09:51 | PC.NURSE ---
Bilateral lower extremities appear cyanotic and cold. Blanchable, unable to palpate pedal pulses bilaterally. unable to find pulses via doppler. Pt has adequate sensation and can wiggle toes. Dr Em made aware. Lower extremities wrapped in warm blankets. Arrived with 20G IV RAC from EMS which is infiltrated. at bedside. states feet appear at baseline. Advised that pt has L sided deficits from previous stroke. Reports pt failed Eliquis in October and had a PE and a blood clot in his heart and was changed to Xarelto. Fall last night was witnessed by who reports he did not hit his head.
--- NOTE | 2023-06-24 09:56 | ED_ITS ---
HPI - Fall General Chief Complaint: Fall Stated Complaint: fall, R short rotated, hypotensive afib Time Seen by Provider: 06/24/23 09:32 History of Present Illness HPI Narrative: 73-year-old male with history of CVA with residual right-sided weakness, alcohol use disorder, atrial fibrillation on Eliquis, congestive heart failure, morbid obesity presents by EMS from home for right lower extremity pain. Patient had a ground level fall while walking in his house last night. Denies hitting his head, denies loss of consciousness. Patient refused to go to the ER last night and remained in bed in pain. Family convinced the patient to come into the emergency department tonight for evaluation. Patient arrived with leg shortened and externally rotated. Patient did endorse alcohol use last night. Related Data Home Medications Medication Instructions Recorded Confirmed cholecalciferol (vitamin D3) 50 50 mcg PO DAILY 05/05/22 06/24/23 mcg (2,000 unit) capsule cyanocobalamin (vitamin B-12) 1,000 mcg PO DAILY 05/05/22 06/24/23 1,000 mcg capsule metoprolol tartrate 50 mg tablet 50 mg PO TID 05/05/22 06/24/23 Previous Rx's Medication Instructions Recorded allopurinol 300 mg tablet 300 mg PO DAILY #90 tabs 07/12/22 atorvastatin 10 mg tablet 5 mg PO DAILY #45 tabs 11/24/22 furosemide 40 mg tablet 40 mg PO DAILY #90 tabs 04/25/23 rivaroxaban 20 mg tablet (Xarelto) 20 mg PO DAILY #90 tabs 04/25/23 venlafaxine 225 mg tablet,extended 225 mg PO DAILY #90 tabs 05/05/23 release 24 hr lisinopril 10 mg tablet 10 mg PO DAILY #90 tabs 05/06/23 Allergies Allergy/AdvReac Type Severity Reaction Status Date / Time adhesive tape [ADHESIVE TAPE] AdvReac Intermediate itching Verified 03/02/23 17:37 Review of Systems Review of Systems Narrative: CONSTITUTIONAL- Denies: fever, chills, fatigue HEENT- Denies: sore throat, nosebleed, vision changes RESPIRATORY- Denies: shortness of breath, cough, wheezing CARDIAC- Denies: chest pain, edema, orthopnea GI- Denies: abdominal pain, nausea, vomiting, constipation, diarrhea - Denies: frequency, dysuria, hematuria, flank pain MSK-reports: Right hip pain Denies: extremity pain, extremity swelling SKIN- Denies: rash, itching, burn, swelling NEUROLOGICAL- Denies: headache, numbness, weakness, dizziness PSYCHIATRIC- Denies: anxiety, depression, suicidal ideation, homicidal ideation Patient History Medical History Abnormal chest xray (Unknown) Acne Alcohol use disorder Cerebrovascular disease Chickenpox (Unknown) Chronic a-fib (Unknown) Chronic anticoagulation Chronic back pain (~2007) Coronary artery disease Dementia Depression, major, recurrent Erectile dysfunction (Unknown) Essential hypertension Fractures Frequent falls Gout (~2016) Hearing loss (~2018) History of CVA (cerebrovascular accident) (~2014) Hypertension (Unknown) Left atrial thrombus Left hemiparesis Low testosterone in male (~2015) Measles Mixed hyperlipidemia Mumps Paroxysmal atrial fibrillation Plantar warts Primary osteoarthritis involving multiple joints Skin ulcer of left great toe Stroke (~2015) Transient ischemic attack (~2014) Vision disorder Surgical History Anesthesia History of surgery on arm (~2017) History of tonsillectomy Status post knee surgery Family History Father No problems noted. Mother Adopted Social History household members: spouse Smoking Status: Former smoker alcohol intake: former Smoking Status: Former smoker alcohol intake frequency: 3 or more drinks per day Alcohol type: beer and hard liquor Substance Use Type: does not use Exam Initial Vital Signs Initial Vital Signs: Vital Signs Pulse Rate 134 H 06/24/23 09:37 Respiratory Rate 20 06/24/23 09:37 Blood Pressure 90/56 L 06/24/23 09:37 Pulse Oximetry 93 06/24/23 09:37 Oxygen Delivery Method Room Air 06/24/23 09:37 Const: Awake, alert, appears chronically unwell, morbidly obese Eyes: PERRL, EOMI, conjunctiva normal ENT: Atraumatic, edentulous, mucous membranes moist Cardiac: Tachycardia, irregularly irregular RESP: unlabored, clear bilaterally, no wheezing GI: Atraumatic, soft, nontender, nondistended, no rebound, no guarding MSK: Right lower extremity shortened, externally rotated in position of comfort. Bilateral feet cyanotic Skin: Cool, dry, intact Neuro: AO x3, CN II-XII grossly intact, moves all extremities Psych: affect normal, mood normal, not suicidal, not homicidal Scores [place] CT Head Rule Age greater or equal to 65 years: Yes GCS Citation: Fifteen Nexus Score for C-Spine Focal Neurologic deficit present: No Midline spinal tenderness present: No Altered level of conciousness present: No Intoxication present: No Distracting Injury Present: Yes Nexus Criteria for C-spine: 1 Course Course Course Narrative: Chronically unwell appearing patient presenting for probable hip fracture after ground level fall last night. Leg is shortened and externally rotated. Bilateral feet are blue and extremely cold. Patient does have sensation in bilateral feet and is able to wiggle his toes, denies pain in his feet. Warm blankets applied to feet and we will check vasculature of lower extremities. Patient denies hitting his head, however he was intoxicated last night after drinking multiple alcoholic beverages per his own admission, we will scan head and neck. Patient is also tachycardic and hypotensive. We will give fluids and will reassess. Orders Ordered: ED Orders 06/24/23 09:50 CT angio abd aorta runoff Stat CT cervical spine wo con Stat CT head/brain wo con Stat Chest [XR chest 1V] Stat XR hip w pel if done RT 2V Stat 06/24/23 10:00 Blood Culture Stat CBC Auto Diff [Complete Blood Count AUTO DIFF] Stat CK [Creatine Kinase] Stat CMP [Comprehensive Metabolic Panel] Stat Ethanol (ETOH) Stat Lactate (Lactic Acid) Stat PT [Prothrombin Time INR] Stat PTT Partial Thromboplastin Acrlos Stat 06/24/23 11:25 Ammonia (NH3) Stat 06/24/23 11:52 XR hip w pel if done RT 2V Stat 06/24/23 13:00 UA Complete [Urinalysis and Microscopic] Stat 06/24/23 14:42 Lactate (Lactic Acid) Stat Sodium Chloride (Normal Saline 0.9%) 1,000 mls @ 125 mls/hr IV CONT CHLOE Last Admin: 06/24/23 13:28 Dose: 125 mls/hr Documented By: SB Discontinued Medications Fentanyl (Fentanyl 100 Mcg/2 Ml Inj) 100 mcg IV NOW ONE Stop: 06/24/23 09:51 Last Admin: 06/24/23 10:01 Dose: 100 mcg Documented By: SENAIT Hydromorphone HCl (Hydromorphone 1 Mg Inj) 1 mg IV NOW ONE Stop: 06/24/23 11:53 Last Admin: 06/24/23 12:07 Dose: 1 mg Documented By: RB Hydromorphone HCl (Hydromorphone 1 Mg Inj) 1 mg IV NOW ONE Stop: 06/24/23 14:08 Last Admin: 06/24/23 14:23 Dose: 1 mg Documented By: SB Hydromorphone HCl (Hydromorphone 1 Mg Inj) 1 mg IV NOW ONE Stop: 06/24/23 16:32 Last Admin: 06/24/23 16:44 Dose: 1 mg Documented By: MELISSA Sodium Chloride (Normal Saline 0.9%) 1,000 mls @ 2,000 mls/hr IV BOLUS ONE Stop: 06/24/23 10:19 Last Infusion: 06/24/23 11:14 Dose: 0 mls/hr Documented By: Admin: 06/24/23 10:02 Dose: 2,000 mls/hr Documented By: SENAIT Sodium Chloride (Normal Saline 0.9%) 1,000 mls @ 1,000 mls/hr IV BOLUS ONE Stop: 06/24/23 12:14 Last Infusion: 06/24/23 12:29 Dose: 0 mls/hr Documented By: Admin: 06/24/23 11:23 Dose: 1,000 mls/hr Documented By: RB Ceftriaxone Sodium 2,000 mg/ (Sodium Chloride) 100 mls @ 200 mls/hr IV NOW ONE Stop: 06/24/23 11:54 Last Infusion: 06/24/23 12:39 Dose: 0 mls/hr Documented By: Admin: 06/24/23 12:06 Dose: 200 mls/hr Documented By: RB Lidocaine HCl (Lidocaine 2% (Glydo) 6 Ml Gel) 6 ml TOP NOW ONE Stop: 06/24/23 12:46 Last Admin: 06/24/23 13:43 Dose: 6 ml Documented By: RB Metoprolol Tartrate (Metoprolol Tartrate 5 Mg/5 Ml Inj) 5 mg IV NOW ONE Stop: 06/24/23 16:32 Last Admin: 06/24/23 16:41 Dose: Not Given Documented By: SB Reevaluation(s) Reevaluation #1: X-rays confirm significant subtrochanteric hip fracture. Color of lower extrem ities improved after application of numerous warm blankets. Blood pressure improved with IV fluids. WBC count elevated, lactic acid 14. No obvious source of infection, suspect this is at least partially contributed to by Trauma and delayed presentation to the emergency department. Can not rule out sepsis or infection, so we will give 1 dose of empiric antibiotics. CT angio runoff shows patent lower extremity vessels with no signs of occlusion or ischemia. Call placed to Orthopedic surgery, who will come down to evaluate the images. Reevaluation #2: Orthopedic surgery requested additional imaging of the hip for further assessment of the fracture. This was ordered per their request. Reevaluation #3: After review of all imaging orthopedic surgery requested patient be transferred to [facility] for higher level of care given the patient's numerous comorbidities. Patient reassessed, his pain is well-controlled, blood pressure and heart rate improved with IV fluids. Additional Reevaluation(s): [facility] reviewed patient's case, Dr. Sabillon accept the patient for transfer ER to ER. Patient and his updated at bedside. Patient was given additional analgesia for his ambulance ride to [facility]. Hemodynamically stable at time of transfer. Consultations Consultation #1: Dr. Villarreal (Ortho) Consultation #2: Orthopedics Vital Signs Vital signs: Vital Signs - 8 hr 06/24/23 10:50 06/24/23 10:50 06/24/23 11:00 Temperature 97.9 F Pulse Rate 117 H Respiratory Rate 25 H Blood Pressure 156/66 H 148/62 H Pulse Oximetry 95 Oxygen Delivery Method 06/24/23 11:00 06/24/23 11:10 06/24/23 11:10 Temperature Pulse Rate 106 H 117 H Respiratory Rate 25 H 21 Blood Pressure 130/74 Pulse Oximetry 99 98 Oxygen Delivery Method 06/24/23 11:20 06/24/23 11:20 06/24/23 11:30 Temperature Pulse Rate 112 H Respiratory Rate 26 H Blood Pressure 116/66 132/89 Pulse Oximetry 98 Oxygen Delivery Method 06/24/23 11:30 06/24/23 11:40 06/24/23 11:40 Temperature Pulse Rate 117 H 119 H Respiratory Rate 27 H 25 H Blood Pressure 120/58 L Pulse Oximetry 99 94 Oxygen Delivery Method 06/24/23 11:50 06/24/23 11:50 06/24/23 12:00 Temperature Pulse Rate 117 H Respiratory Rate 26 H Blood Pressure 105/55 L 125/75 Pulse Oximetry 97 Oxygen Delivery Method 06/24/23 12:00 06/24/23 12:10 06/24/23 12:10 Temperature Pulse Rate 118 H 120 H Respiratory Rate 21 28 H Blood Pressure 120/59 L Pulse Oximetry 91 Oxygen Delivery Method 06/24/23 12:20 06/24/23 12:20 06/24/23 12:30 Temperature Pulse Rate 128 H Respiratory Rate 33 H Blood Pressure 145/58 H 115/56 L Pulse Oximetry 92 Oxygen Delivery Method 06/24/23 12:30 06/24/23 12:40 06/24/23 12:40 Temperature Pulse Rate 113 H 115 H Respiratory Rate 32 H 22 Blood Pressure 122/63 Pulse Oximetry 99 99 Oxygen Delivery Method 06/24/23 12:50 06/24/23 12:50 06/24/23 13:00 Temperature Pulse Rate 116 H Respiratory Rate 22 Blood Pressure 126/68 147/62 H Pulse Oximetry 98 Oxygen Delivery Method 06/24/23 13:00 06/24/23 13:10 06/24/23 13:10 Temperature 97.9 F Pulse Rate 117 H 121 H Respiratory Rate 24 Blood Pressure 108/67 Pulse Oximetry 100 100 Oxygen Delivery Method 06/24/23 13:20 06/24/23 13:20 06/24/23 13:30 Temperature 98.4 F Pulse Rate 118 H Respiratory Rate 20 Blood Pressure 145/73 H 123/55 L Pulse Oximetry 97 Oxygen Delivery Method 06/24/23 13:30 06/24/23 13:40 06/24/23 13:40 Temperature 98.6 F 98.8 F Pulse Rate 121 H 118 H Respiratory Rate 29 H Blood Pressure 108/59 L Pulse Oximetry 98 100 Oxygen Delivery Method Room Air 06/24/23 13:50 06/24/23 13:50 06/24/23 14:00 Temperature 99.0 F Pulse Rate 118 H Respiratory Rate 23 Blood Pressure 115/57 L 128/64 Pulse Oximetry 97 Oxygen Delivery Method 06/24/23 14:00 06/24/23 14:10 06/24/23 14:10 Temperature 99.1 F 99.1 F Pulse Rate 120 H 116 H Respiratory Rate 27 H 28 H Blood Pressure 124/60 Pulse Oximetry 98 99 Oxygen Delivery Method 06/24/23 14:20 06/24/23 14:20 06/24/23 14:30 Temperature 99.1 F Pulse Rate 115 H Respiratory Rate 28 H Blood Pressure 122/55 L 119/48 L Pulse Oximetry 99 Oxygen Delivery Method Room Air 06/24/23 14:30 06/24/23 14:31 06/24/23 14:31 Temperature 99.1 F 99.1 F Pulse Rate 119 H 116 H Respiratory Rate 23 20 Blood Pressure 124/66 Pulse Oximetry 98 98 Oxygen Delivery Method 06/24/23 14:40 06/24/23 14:40 06/24/23 14:50 Temperature 99.3 F Pulse Rate 121 H Respiratory Rate 20 Blood Pressure 112/65 147/98 H Pulse Oximetry 95 Oxygen Delivery Method 06/24/23 14:50 06/24/23 15:00 06/24/23 15:00 Temperature 99.3 F 99.1 F Pulse Rate 123 H 124 H Respiratory Rate 19 19 Blood Pressure 135/68 Pulse Oximetry 96 95 Oxygen Delivery Method 06/24/23 15:10 06/24/23 15:10 06/24/23 15:20 Temperature 99.1 F Pulse Rate 122 H Respiratory Rate 19 Blood Pressure 123/59 L 126/72 Pulse Oximetry 97 Oxygen Delivery Method 06/24/23 15:20 06/24/23 15:30 06/24/23 15:30 Temperature 99.1 F 99.3 F Pulse Rate 123 H 123 H Respiratory Rate 20 22 Blood Pressure 122/63 Pulse Oximetry 97 100 Oxygen Delivery Method 06/24/23 15:40 06/24/23 15:40 06/24/23 15:50 Temperature 99.1 F Pulse Rate 123 H Respiratory Rate 19 Blood Pressure 125/75 122/66 Pulse Oximetry 97 Oxygen Delivery Method 06/24/23 15:50 06/24/23 16:00 06/24/23 16:00 Temperature 99.1 F 99.1 F Pulse Rate 126 H 125 H Respiratory Rate 23 24 Blood Pressure 127/60 Pulse Oximetry 98 98 Oxygen Delivery Method 06/24/23 16:10 06/24/23 16:10 06/24/23 16:20 Temperature 99.1 F Pulse Rate 123 H Respiratory Rate 19 Blood Pressure 132/63 123/61 Pulse Oximetry 97 Oxygen Delivery Method 06/24/23 16:20 06/24/23 16:30 06/24/23 16:30 Temperature 99.1 F 99.1 F Pulse Rate 125 H 125 H Respiratory Rate 23 26 H Blood Pressure 95/50 L Pulse Oximetry 98 96 Oxygen Delivery Method Room Air 06/24/23 16:35 06/24/23 16:35 06/24/23 16:40 Temperature 99.3 F Pulse Rate 135 H Respiratory Rate 27 H Blood Pressure 100/59 L 116/74 Pulse Oximetry 99 Oxygen Delivery Method Room Air 06/24/23 16:40 06/24/23 16:50 06/24/23 16:50 Temperature 99.3 F 99.3 F Pulse Rate 124 H 127 H Respiratory Rate 28 H 25 H Blood Pressure 101/61 Pulse Oximetry 96 95 Oxygen Delivery Method 06/24/23 17:00 Temperature 99.3 F Pulse Rate Respiratory Rate Blood Pressure Pulse Oximetry Oxygen Delivery Method - Fall Lab Data 06/24/23 10:00 06/24/23 10:00 Labs: Lab Results 06/24/23 06/24/23 06/24/23 Range/Units 10:00 10:00 10:00 WBC 18.4 H (4.5-11.0) X10^3/uL RBC 3.32 L (4.5-5.9) X10^6/uL Hgb 11.1 L (13.5-17.5) g/dL Hct 34.1 L (41-53) % MCV 102.9 H (80-100) fL MCH 33.6 (26-34) PG MCHC 32.7 (30-36) % RDW 16.3 H (11.6-14.8) % Plt Count 227 (150-400) X10^3/uL Neut % (Auto) 85.8 H (50-75) % Lymph % (Auto) 9.6 L (25-40) % [place] % (Auto) 4.3 (3-14) % Eos % (Auto) 0.2 L (2-4) % Baso % (Auto) 0.1 (0-2) % Neut # (Auto) 44021 H (3482-3126) /uL Lymph # (Auto) 1800 (7642-1409) /uL [place] # (Auto) 800 (0-900) /uL Eos # (Auto) 0 (0-450) /uL Baso # (Auto) 0 (0-100) /uL PT 20.7 H (10.1-12.7) SECONDS INR 1.8 H (0.9-1.3) APTT 31 (26-36) SECONDS Sodium 130 L (137-145) mmol/L Potassium 5.9 H (3.4-5.1) mmol/L Chloride 95 L (98-107) mmol/L Carbon Dioxide 14 L (22-32) mmol/L BUN 22 H (9-20) mg/dL Creatinine 1.63 H (0.66-1.25) mg/dL Estimated GFR 45 L (>60) mL/min BUN/Creatinine Ratio 13.5 (6-22) Glucose 299 H (80-110) mg/dL Lactate (0.7-2.1) mmol/L Calcium 8.5 (8.4-10.2) mg/dL Total Bilirubin 1.3 (0.2-1.3) mg/dL AST 56 (17-59) IU/L ALT 45 (<50) IU/L Alkaline Phosphatase 49 (38-126) U/L Ammonia (9-30) umol/L Total Creatine Kinase 280 H (55-170) U/L Total Protein 6.6 (6.3-8.2) g/dL Albumin 3.6 (3.5-5.0) g/dL Globulin 3.0 (1.7-4.1) g/dL Albumin/Globulin Ratio 1.2 (1.0-2.8) Urine Color Urine Appearance Urine pH (4.5-8.0) Ur Specific [place] (1.000-1.035) Urine Protein (Negative) Urine Glucose (UA) (Negative) g/dL Urine Ketones (NEGATIVE) Urine Occult Blood (Negative) Urine Nitrate (Negative) Urine Bilirubin (NEGATIVE) Urine Urobilinogen (0.2) E.U./dL Ur Leukocyte Esterase (NEGATIVE) Urine RBC (0-5/HPF) Urine WBC (0-5/HPF) Ur Squamous Epith Cells (0-5/HPF) Urine Bacteria (None) Hyaline Casts (None) Ur Culture Indicated? Ethyl Alcohol < 10 ( - 10) mg/dL 06/24/23 06/24/23 06/24/23 Range/Units 10:00 11:25 12:18 WBC (4.5-11.0) X10^3/uL RBC (4.5-5.9) X10^6/uL Hgb (13.5-17.5) g/dL Hct (41-53) % MCV (80-100) fL MCH (26-34) PG MCHC (30-36) % RDW (11.6-14.8) % Plt Count (150-400) X10^3/uL Neut % (Auto) (50-75) % Lymph % (Auto) (25-40) % [place] % (Auto) (3-14) % Eos % (Auto) (2-4) % Baso % (Auto) (0-2) % Neut # (Auto) (5282-8831) /uL Lymph # (Auto) (6722-7335) /uL [place] # (Auto) (0-900) /uL Eos # (Auto) (0-450) /uL Baso # (Auto) (0-100) /uL PT (10.1-12.7) SECONDS INR (0.9-1.3) APTT (26-36) SECONDS Sodium (137-145) mmol/L Potassium (3.4-5.1) mmol/L Chloride (98-107) mmol/L Carbon Dioxide (22-32) mmol/L BUN (9-20) mg/dL Creatinine (0.66-1.25) mg/dL Estimated GFR (>60) mL/min BUN/Creatinine Ratio (6-22) Glucose (80-110) mg/dL Lactate 14.3 H* 9.9 H* (0.7-2.1) mmol/L Calcium (8.4-10.2) mg/dL Total Bilirubin (0.2-1.3) mg/dL AST (17-59) IU/L ALT (<50) IU/L Alkaline Phosphatase (38-126) U/L Ammonia 13 (9-30) umol/L Total Creatine Kinase (55-170) U/L Total Protein (6.3-8.2) g/dL Albumin (3.5-5.0) g/dL Globulin (1.7-4.1) g/dL Albumin/Globulin Ratio (1.0-2.8) Urine Color Urine Appearance Urine pH (4.5-8.0) Ur Specific [place] (1.000-1.035) Urine Protein (Negative) Urine Glucose (UA) (Negative) g/dL Urine Ketones (NEGATIVE) Urine Occult Blood (Negative) Urine Nitrate (Negative) Urine Bilirubin (NEGATIVE) Urine Urobilinogen (0.2) E.U./dL Ur Leukocyte Esterase (NEGATIVE) Urine RBC (0-5/HPF) Urine WBC (0-5/HPF) Ur Squamous Epith Cells (0-5/HPF) Urine Bacteria (None) Hyaline Casts (None) Ur Culture Indicated? Ethyl Alcohol ( - 10) mg/dL 06/24/23 06/24/23 06/24/23 Range/Units 13:00 14:42 16:45 WBC (4.5-11.0) X10^3/uL RBC (4.5-5.9) X10^6/uL Hgb (13.5-17.5) g/dL Hct (41-53) % MCV (80-100) fL MCH (26-34) PG MCHC (30-36) % RDW (11.6-14.8) % Plt Count (150-400) X10^3/uL Neut % (Auto) (50-75) % Lymph % (Auto) (25-40) % [place] % (Auto) (3-14) % Eos % (Auto) (2-4) % Baso % (Auto) (0-2) % Neut # (Auto) (3404-5181) /uL Lymph # (Auto) (5561-1825) /uL [place] # (Auto) (0-900) /uL Eos # (Auto) (0-450) /uL Baso # (Auto) (0-100) /uL PT (10.1-12.7) SECONDS INR (0.9-1.3) APTT (26-36) SECONDS Sodium (137-145) mmol/L Potassium (3.4-5.1) mmol/L Chloride (98-107) mmol/L Carbon Dioxide (22-32) mmol/L BUN (9-20) mg/dL Creatinine (0.66-1.25) mg/dL Estimated GFR (>60) mL/min BUN/Creatinine Ratio (6-22) Glucose (80-110) mg/dL Lactate 6.5 H* 4.7 H* (0.7-2.1) mmol/L Calcium (8.4-10.2) mg/dL Total Bilirubin (0.2-1.3) mg/dL AST (17-59) IU/L ALT (<50) IU/L Alkaline Phosphatase (38-126) U/L Ammonia (9-30) umol/L Total Creatine Kinase (55-170) U/L Total Protein (6.3-8.2) g/dL Albumin (3.5-5.0) g/dL Globulin (1.7-4.1) g/dL Albumin/Globulin Ratio (1.0-2.8) Urine Color Yellow Urine Appearance Sl cloudy Urine pH 5.0 (4.5-8.0) Ur Specific [place] >=1.030 H (1.000-1.035) Urine Protein 1+ H (Negative) Urine Glucose (UA) Negative (Negative) g/dL Urine Ketones Trace H (NEGATIVE) Urine Occult Blood Negative (Negative) Urine Nitrate Negative (Negative) Urine Bilirubin Negative (NEGATIVE) Urine Urobilinogen 1.0 (0.2) E.U./dL Ur Leukocyte Esterase Negative (NEGATIVE) Urine RBC 0-1/hpf (0-5/HPF) Urine WBC 0-1/hpf (0-5/HPF) Ur Squamous Epith Cells 0-1 /hpf (0-5/HPF) Urine Bacteria Few (2-10) H (None) Hyaline Casts 1-5/lpf (None) Ur Culture Indicated? Cult not indicated Ethyl Alcohol ( - 10) mg/dL Treatment and disposition Social Determinants of Health that impact treatment or disposition: Alcohol abuse Code Status and discussions:: Full code, discussed with patient and Shared decision making:: With patient and Critical Care Time Critical Care Time Critical Care Time: Yes Total Critical Care Time: 68 Attestation: Frequent neurovascular checks, discussion with multiple orthopedic surgeons, correction of lactic acidosis, empiric sepsis treatment, guided fluid resuscitation Discharge Plan [facility]art[facility] Clinical Impression: Closed hip fracture, Acidosis, lactic, Atrial fibrillation, Alcohol use, Morbid obesity Prescriptions: No Action allopurinol 300 mg tablet 300 mg PO DAILY Qty: 90 3RF atorvastatin 10 mg tablet 5 mg PO DAILY Qty: 45 3RF furosemide 40 mg tablet 40 mg PO DAILY Qty: 90 2RF Xarelto 20 mg tablet 20 mg PO DAILY Qty: 90 2RF venlafaxine 225 mg tablet extended release 24hr 225 mg PO DAILY Qty: 90 2RF lisinopril 10 mg tablet 10 mg PO DAILY Qty: 90 3RF cyanocobalamin (vitamin B-12) 1,000 mcg capsule 1,000 mcg PO DAILY cholecalciferol (vitamin D3) 50 mcg (2,000 unit) capsule 50 mcg PO DAILY metoprolol tartrate 50 mg tablet 50 mg PO TID Patient Comments: TAKE 1 TABLET BY MOUTH TWICE DAILY. 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
[2023-06-24] MEDS: fentaNYL 100 MCG/2 ML INJ IV (10:01)
[2023-06-24] MEDS: SODIUM CHLORIDE 0.9% 1,000 ML 2000 ML IV (10:02)
[2023-06-24 10:16] LABS: Add Manual Diff / Slide Review NO; Basophils Absolute Auto 0 /uL (0-100); Basophils Percent Auto 0.1 % (0-2); Eosinophils Absolute Auto 0 /uL (0-450); Eosinophils Percent Auto 0.2 % (2-4); Hematocrit 34.1 % (41-53); Hemoglobin 11.1 g/dL (13.5-17.5); Lymphocytes Absolute Auto 1800 /uL (1100-4500); Lymphocytes Percent Auto 9.6 % (25-40); Mean Corpuscular HGB Conc 32.7 % (30-36); Mean Corpuscular Hemoglobin 33.6 PG (26-34); Mean Corpuscular Volume 102.9 fL (80-100); Monocytes Absolute Auto 800 /uL (0-900); Monocytes Percent Auto 4.3 % (3-14); Neutrophils Absolute Auto 15800 /uL (1500-7000); Neutrophils Percent Auto 85.8 % (50-75); Platelet Count 227 X10^3/uL (150-400); Red Blood Cell Count 3.32 X10^6/uL (4.5-5.9); Red Cell Distribution Width 16.3 % (11.6-14.8); White Blood Cell Count 18.4 X10^3/uL (4.5-11.0)
[2023-06-24 10:22] LABS: INR 1.8 (0.9-1.3); Prothrombin Time 20.7 SECONDS (10.1-12.7)
[2023-06-24 10:25] LABS: PTT Partial Thromboplastin Tim 31 SECONDS (26-36)
[2023-06-24 10:28] LABS: Albumin 3.6 g/dL (3.5-5.0); Albumin Globulin Ratio 1.2 (1.0-2.8); Alkaline Phosphatase 49 U/L (38-126); BUN Creatinine Ratio 13.5 (6-22); Bilirubin Total 1.3 mg/dL (0.2-1.3); Blood Urea Nitrogen 22 mg/dL (9-20); Calcium 8.5 mg/dL (8.4-10.2); Carbon Dioxide 14 mmol/L (22-32); Chloride 95 mmol/L (98-107); Creatine Kinase 280 U/L (55-170); Estimated Glomerular Filt Rate 45 mL/min (>60); Ethanol (ETOH) < 10 mg/dL; Glucose 299 mg/dL (80-110); HEMOLYSIS < 15 (0-50); Sodium 130 mmol/L (137-145); Total Protein 6.6 g/dL (6.3-8.2)
[2023-06-24 10:33] LABS: Potassium 5.9 mmol/L (3.4-5.1)
[2023-06-24 10:49] LABS: Aspartate Aminotransferase 56 IU/L (17-59)
[2023-06-24 10:57] LABS: Alanine Aminotransferase 45 IU/L (<50)
[2023-06-24 11:00] LABS: Lactate (Lactic Acid) 14.3 mmol/L (0.7-2.1)
[2023-06-24] MEDS: SODIUM CHLORIDE 0.9% 1,000 ML 1000 ML IV (11:23)
--- NOTE | 2023-06-24 11:52 | DI.RAD.S_ITS ---
PROCEDURE: XR HIP W PEL IF DONE RT 2V INDICATIONS: HIP FX, ADDITIONAL EVAL TECHNIQUE: 2 views of the hip were acquired. COMPARISON: [facility], CR, XR HIP W PEL IF DONE RT 2V, 06/24/2023, 9:51. FINDINGS: Bones: Comminuted, displaced, slightly impacted complex right intertrochanteric and proximal femur fracture. The right femoroacetabular joint appears grossly intact. Soft tissues: No suspicious soft tissue calcifications or masses. IMPRESSION: Comminuted and displaced right proximal femur fracture. Dictated by: Gunjan Jerez M.D. on 06/24/2023 at 13:25 Approved by: Gunjan Jerez M.D. on 06/24/2023 at 13:26
[2023-06-24 11:59] LABS: Ammonia (NH3) 13 umol/L (9-30)
[2023-06-24] MEDS: cefTRIAXone 2,000 MG in SODIUM CHLORIDE 0.9% 100 ML 200 MG IV (12:06)
[2023-06-24] MEDS: HYDROMORPHONE 1 MG INJ IV ×3 (12:07→16:44)
[2023-06-24 12:18] LABS: Reflexed Lactate in 2 Hours Y
[2023-06-24 13:02] LABS: Lactate 2HR (Lactic Acid Rflx) 9.9 mmol/L (0.7-2.1)
[2023-06-24] MEDS: SODIUM CHLORIDE 0.9% 1,000 ML 125 ML IV (13:28)
--- NOTE | 2023-06-24 13:38 | PC.NURSE ---
Addendum entered by Arabella Nogueira R.N. 06/24/23 17:16: Correction. Pedal pulses not palpated, but strong posterior tibial pulse palpated bilaterally. Cap refill is 4 seconds in right foot. Original Note: Bilateral feet with purple discoloration. Strong pedal pulse present in both lower extremities. Per patient and this is normal for him.
[2023-06-24] MEDS: LIDOCAINE 2% (GLYDO) 6 ML GEL TOP (13:43)
[2023-06-24 14:01] LABS: Appearance Urine UA SL CLOUDY; Bilirubin Urine UA NEGATIVE (NEGATIVE); Color Urine UA YELLOW; Glucose Urine UA NEGATIVE (Negative); Ketones Urine UA TRACE (NEGATIVE); Leukocyte Esterase Urine UA NEGATIVE (NEGATIVE); Nitrite Urine UA NEGATIVE (Negative); Occult Blood Urine UA NEGATIVE (Negative); Protein Urine UA 1+ (Negative); Specific Gravity Urine UA >=1.030 (1.000-1.035)
[2023-06-24 14:22] LABS: Bacteria Urine Few (2-10); Culture Indicated Urine Cult Not Indicated; Hyaline Casts Urine 1-5/LPF; RBC Urine 0-1/HPF (0-5/HPF); Squamous Epithelial Cell Urine 0-1 /HPF (0-5/HPF); WBC Urine 0-1/HPF (0-5/HPF)
[2023-06-24 15:15] LABS: Lactate (Lactic Acid) 6.5 mmol/L (0.7-2.1)
[2023-06-24 16:59] LABS: Reflexed Lactate in 2 Hours Y
[2023-06-24 17:27] LABS: Lactate 2HR (Lactic Acid Rflx) 4.7 mmol/L (0.7-2.1)
== END 2023-06-24 17:10 | disposition short-term general hospital (02) ==
PROVIDERS: Emergency Provider Emergency Medicine; Family Provider Orthopaedic Surgery Foot and Ankle Surgery; PCP Internal Medicine
DX: S72.091A Other fracture of head and neck of right femur, initial encounter for closed fracture (principal); E87.20 Acidosis, unspecified; I48.91 Unspecified atrial fibrillation; Z78.9 Other specified health status; E66.01 Morbid (severe) obesity due to excess calories; R00.0 Tachycardia, unspecified; I95.9 Hypotension, unspecified; W18.30XA Fall on same level, unspecified, initial encounter
CPT/HCPCS: 36415; 70450; 71045; 72125; 73502; 75635; 80053; 80320; 81001; 82140; 82550; 83605; 85025; 85610; 85730; 87040; 96365; 96375; 96376; 99285; 99291; J0696; J1170; J3010; Q9967

== ENCOUNTER → 2023-10-18 15:42 | Outpatient (CLI) | payer MEDICARE, SELFPAY ==
[2023-03-02 20:56] VITALS: BMI 39.6
[2023-10-18 16:13] LABS: Hematocrit 41.2 % (41-53); Hemoglobin 13.5 g/dL (13.5-17.5); Mean Corpuscular HGB Conc 32.9 % (30-36); Mean Corpuscular Hemoglobin 29.1 PG (26-34); Mean Corpuscular Volume 88.4 fL (80-100); Platelet Count 160 X10^3/uL (150-400); Red Blood Cell Count 4.65 X10^6/uL (4.5-5.9); Red Cell Distribution Width 17.1 % (11.6-14.8); White Blood Cell Count 8.7 X10^3/uL (4.5-11.0)
[2023-10-18 16:46] LABS: Alanine Aminotransferase 36 IU/L (<50); Albumin 3.7 g/dL (3.5-5.0); Albumin Globulin Ratio 0.9 (1.0-2.8); Alkaline Phosphatase 122 U/L (38-126); Aspartate Aminotransferase 29 IU/L (17-59); BUN Creatinine Ratio 32.9 (6-22); Bilirubin Total 0.7 mg/dL (0.2-1.3); Blood Urea Nitrogen 27 mg/dL (9-20); Calcium 9.4 mg/dL (8.4-10.2); Carbon Dioxide 31 mmol/L (22-32); Chloride 98 mmol/L (98-107); Cholesterol 133 mg/dL (140-199); Estimated Glomerular Filt Rate > 60 mL/min (>60); Globulin 3.9 g/dL (1.7-4.1); Glucose 131 mg/dL (80-110); HDL Cholesterol 31 mg/dL (40-60); HEMOLYSIS < 15 (0-50); LDL Cholesterol Calculated 74 mg/dL (<100); Potassium 4.3 mmol/L (3.4-5.1); Sodium 136 mmol/L (137-145); Total Protein 7.6 g/dL (6.3-8.2); Triglycerides 140 mg/dL (35-150)
== END ==
PROVIDERS: Family Provider Orthopaedic Surgery Foot and Ankle Surgery; PCP Internal Medicine; Referring Provider Internal Medicine; Visit Provider Internal Medicine
DX: I48.0 Paroxysmal atrial fibrillation (principal); E78.2 Mixed hyperlipidemia; I25.10 Atherosclerotic heart disease of native coronary artery without angina pectoris
CPT/HCPCS: 36415; 80053; 80061; 85027

== ENCOUNTER → 2024-11-30 11:12 | Outpatient (CLI) | payer MEDICARE, SELFPAY ==
[2023-03-02 20:56] VITALS: BMI 39.6
[2024-11-30 11:50] LABS: Mean Corpuscular HGB Conc 33.3 % (30-36); Mean Corpuscular Volume 99.1 fL (80-100); Platelet Count 185 X10^3/uL (150-400); Red Blood Cell Count 4.54 X10^6/uL (4.5-5.9); White Blood Cell Count 11.1 X10^3/uL (4.5-11.0)
[2024-11-30 12:06] LABS: Alanine Aminotransferase 26 IU/L (<50); Albumin 4.3 g/dL (3.5-5.0); Albumin Globulin Ratio 1.2 (1.0-2.8); Alkaline Phosphatase 82 U/L (38-126); Aspartate Aminotransferase 24 IU/L (17-59); BUN Creatinine Ratio 25.2 (6-22); Bilirubin Total 0.7 mg/dL (0.2-1.3); Blood Urea Nitrogen 28 mg/dL (9-20); Carbon Dioxide 29 mmol/L (22-32); Chloride 100 mmol/L (98-107); Cholesterol 171 mg/dL (140-199); Estimated Glomerular Filt Rate > 60 mL/min (>60); Globulin 3.5 g/dL (1.7-4.1); Glucose 93 mg/dL (80-110); HDL Cholesterol 59 mg/dL (40-60); HEMOLYSIS < 15 (0-50); LDL Cholesterol Calculated 85 mg/dL (<100); Potassium 4.6 mmol/L (3.4-5.1); Sodium 138 mmol/L (137-145); Total Protein 7.8 g/dL (6.3-8.2); Triglycerides 135 mg/dL (35-150)
[2024-11-30 12:36] LABS: Prostate Specific Antigen 1.51 ng/mL (0.10-4.00)
[2024-11-30 12:38] LABS: TSH w/ Reflex to FT4 3.42 uIU/mL (0.47-4.68)
== END ==
PROVIDERS: Family Provider Orthopaedic Surgery Foot and Ankle Surgery; PCP Internal Medicine; Referring Provider Internal Medicine; Visit Provider Internal Medicine
DX: I48.0 Paroxysmal atrial fibrillation (principal); E78.2 Mixed hyperlipidemia; N40.1 Benign prostatic hyperplasia with lower urinary tract symptoms; N13.8 Other obstructive and reflux uropathy
CPT/HCPCS: 36415; 80053; 80061; 84153; 84443; 85027

== ENCOUNTER 2025-02-23 19:34 | Emergency (ER) | payer MEDICARE, SELFPAY ==
[2023-03-02 20:56] VITALS: BMI 39.6
[2025-02-23] VITALS (13 sets, daily range): BP systolic 100–139; BP diastolic 62–86; PULSE 75–105; RESP 16–20; TEMP 37.2; O2SAT 93–98; BMI 40.1
--- NOTE | 2025-02-23 22:05 | DI.CT.S_ITS ---
PROCEDURE: CT CERVICAL SPINE WO CON INDICATIONS: fall, TECHNIQUE: Noncontrast 3 mm thick sections acquired from the skull base to the T4 level. Sagittal and coronal reformats were then constructed. For radiation dose reduction, the following was used: automated exposure control, adjustment of mA and/or kV according to patient size. COMPARISON: [facility], CT, CT CERVICAL SPINE WO CON, 06/24/2023, 10:19. FINDINGS: Image quality: Excellent. Bones: No fractures or dislocations. Straightening of normal cervical lordosis. Loss of disc height, degenerative endplate changes and bilateral facet hypertrophic changes are noted throughout cervical spine. Visualized superior ribs are intact. Soft tissues: Prevertebral soft tissues are normal in thickness. No paravertebral hematomas. No apical pneumothoraces. Left-sided pleural effusion is seen. IMPRESSION: 1. No displaced fracture or traumatic subluxation. 2. Moderate degenerative disc disease throughout cervical spine. Dictated by: Eliu Solitario M.D. on 02/23/2025 at 22:50 Approved by: Eliu Solitario M.D. on 02/23/2025 at 22:52
--- NOTE | 2025-02-23 22:05 | DI.CT.S_ITS ---
PROCEDURE: CT HEAD/BRAIN WO CON INDICATIONS: fall, hit head, anticoagulated TECHNIQUE: Noncontrast 4.5 mm thick angled axial sections acquired from the foramen magnum to the vertex, with coronal and sagittal reformats. For radiation dose reduction, the following was used: automated exposure control, adjustment of mA and/or kV according to patient size. COMPARISON: [facility], CT, CT HEAD/BRAIN WO CON, 06/24/2023, 10:19. FINDINGS: Image quality: Diagnostic. CSF spaces: Basal cisterns are patent. No extra-axial fluid collections. The ventricles are symmetric in size and shape. Brain: No intracranial bleeds or mass effect. Old infarctions are again seen in right frontal parietal lobe and left height posterior frontal parietal region with encephalomalacia. There is cerebral volume loss, with resultant ventricular and sulcal prominence. There are periventricular and deep white matter chronic small vessel ischemic changes. There is intracranial internal carotid artery atherosclerosis. Skull and face: Calvarium and visualized facial bones appear intact, without suspicious lesions. Sinuses: Visualized sinuses and mastoids are clear. IMPRESSION: No acute intracranial pathology. No significant changes from previous study. Dictated by: Eliu Solitario M.D. on 02/23/2025 at 22:49 Approved by: Eliu Solitario M.D. on 02/23/2025 at 22:50
[2025-02-23 22:17] LABS: Add Manual Diff / Slide Review NO; Basophils Absolute Auto 100 /uL (0-100); Basophils Percent Auto 0.8 % (0-2); Eosinophils Absolute Auto 100 /uL (0-450); Eosinophils Percent Auto 0.8 % (2-4); Hematocrit 44.8 % (41-53); Lymphocytes Absolute Auto 1100 /uL (1100-4500); Lymphocytes Percent Auto 6.6 % (25-40); Mean Corpuscular HGB Conc 33.5 % (30-36); Mean Corpuscular Hemoglobin 33.4 PG (26-34); Mean Corpuscular Volume 99.7 fL (80-100); Monocytes Absolute Auto 900 /uL (0-900); Monocytes Percent Auto 5.4 % (3-14); Neutrophils Absolute Auto 14100 /uL (1500-7000); Neutrophils Percent Auto 86.4 % (50-75); Platelet Count 183 X10^3/uL (150-400); Red Blood Cell Count 4.49 X10^6/uL (4.5-5.9); Red Cell Distribution Width 15.5 % (11.6-14.8); White Blood Cell Count 16.4 X10^3/uL (4.5-11.0)
[2025-02-23 22:21] LABS: Alanine Aminotransferase 32 IU/L (<50); Albumin 4.2 g/dL (3.5-5.0); Albumin Globulin Ratio 1.2 (1.0-2.8); Alkaline Phosphatase 84 U/L (38-126); Aspartate Aminotransferase 37 IU/L (17-59); Bilirubin Total 0.6 mg/dL (0.2-1.3); Blood Urea Nitrogen 38 mg/dL (9-20); Carbon Dioxide 25 mmol/L (22-32); Chloride 99 mmol/L (98-107); Estimated Glomerular Filt Rate 51 mL/min (>60); Globulin 3.6 g/dL (1.7-4.1); Glucose 145 mg/dL (70-99); HEMOLYSIS 23 (0-50); Sodium 135 mmol/L (137-145); Total Protein 7.8 g/dL (6.3-8.2)
[2025-02-23 22:30] LABS: NT-proBNP (BNP-Adult 18+) 844 pg/mL (<125)
[2025-02-23 22:33] LABS: Troponin I < 0.012 ng/mL (0.01-0.034)
[2025-02-23] MEDS: SODIUM CHLORIDE 0.9% 500 ML 1000 ML IV (23:07)
--- NOTE | 2025-02-23 23:29 | ED.GENADULT ---
HPI - General Adult General Chief complaint: Trauma Stated complaint: fall Time Seen by Provider: 02/23/25 20:04 Mode of arrival: EMS History of Present Illness HPI narrative: 74-year-old gentleman with a complex medical history including prior stroke with left-sided deficits, atrial fibrillation, memory deficits, progressive weakness, coronary artery disease, alcohol use disorder, hypertension hyperlipidemia brought in by EMS after having fall today. His notes that over the last number of months he has been progressively more weak and showing less and less interest in movement at all, typically tends to stay in better chair most of the day. She helped him get up to the toilet today after he stood up was holding onto his walker became acutely dizzy fell forward hit the left side of his head including his left ear small abrasion to the dorsum of the left hand and both knees. Medics needed to assist him up from the floor. He and his both note that earlier today he was feeling quite well, so well that they actually went out for dinner which is quite unusual for them. No other complaints at this time Related Data Home Medications Medication Instructions Recorded Confirmed cholecalciferol (vitamin D3) 50 50 mcg PO DAILY 05/05/22 12/27/24 mcg (2,000 unit) capsule cyanocobalamin (vitamin B-12) 1,000 mcg PO DAILY 05/05/22 12/27/24 1,000 mcg capsule Previous Rx's Medication Instructions Recorded Electric motorized wheelchair #1 ea 12/13/23 allopurinol 300 mg tablet 300 mg PO DAILY #90 tabs 12/27/24 atorvastatin 10 mg tablet 5 mg (1/2 x 10 mg) PO DAILY #45 12/27/24 tabs lisinopril 10 mg tablet 10 mg PO DAILY #90 tabs 12/27/24 potassium chloride 20 mEq 20 meq PO BID #180 tabs 12/27/24 tablet,extended release(part/cryst) rivaroxaban 20 mg tablet (Xarelto) 20 mg PO DAILY #90 tabs 12/27/24 venlafaxine 225 mg tablet,extended 225 mg PO DAILY #90 tabs 12/27/24 release 24 hr metoprolol tartrate 100 mg tablet 100 mg PO BID #180 tabs 01/14/25 torsemide 10 mg tablet 10 mg PO DAILY #90 tabs 01/14/25 Allergies Allergy/AdvReac Type Severity Reaction Status Date / Time adhesive tape [ADHESIVE TAPE] AdvReac Intermediate itching Verified 12/27/24 09:03 Review of Systems Review of Systems Narrative: Pertinent positive and negative findings as per HPI Patient History Medical History Gait instability Frequent falls Left atrial thrombus Dementia Primary osteoarthritis involving multiple joints Left hemiparesis Alcohol use disorder Depression, major, recurrent Mixed hyperlipidemia Essential hypertension Coronary artery disease Cerebrovascular disease Chronic anticoagulation Paroxysmal atrial fibrillation Vision disorder Plantar warts Acne Transient ischemic attack (~2014) Gout (~2016) Fractures Mumps Measles Hearing loss (~2018) Hypertension (Unknown) Low testosterone in male (~2015) Erectile dysfunction (Unknown) Abnormal chest xray (Unknown) Chronic back pain (~2007) Chickenpox (Unknown) History of CVA (cerebrovascular accident) (~2014) Surgical History Anesthesia History of surgery on arm (~2017) History of tonsillectomy Status post knee surgery Family History Father No problems noted. Mother Adopted Social History household members: spouse alcohol intake: former alcohol intake frequency: 3 or more drinks per day Alcohol type: beer and hard liquor Exam Initial Vital Signs Initial Vital Signs: Vital Signs Temperature 99 F 02/23/25 19:48 Pulse Rate 77 02/23/25 19:48 Respiratory Rate 20 02/23/25 19:48 Blood Pressure 113/64 02/23/25 19:48 Pulse Oximetry 93 02/23/25 19:48 Oxygen Delivery Method Room Air 02/23/25 19:48 General: Frail, chronically ill-appearing cooperative. HEENT: Moist mucous membranes, normal sclera with reactive pupils, Minor contusion to the helix of the left ear Neck: no midline cervical spine pain Respiratory: Lungs are clear to auscultation, no wheezing no rales no rhonchi. Full and symmetrical air movement Cardiac: Regular rate and rhythm no murmurs no bruits Abdomen: Soft, obese, nontender Skin: Warm and dry, Neurologic: globally weak, left-sided weakness which is his baseline, able to speak in complete sentences Extremities: minor abrasions to both knees, small skin tear to the back of the left hand. No obvious musculoskeletal injuries on further exam Psych: Cooperative, Course Orders Ordered: ED Orders 02/23/25 20:32 Complete Blood Count AUTO DIFF Stat Comprehensive Metabolic Panel Stat NT-proBNP (BNP-Adult 18+) Stat Troponin I Stat 02/23/25 22:05 CT cervical spine wo con Stat CT head/brain wo con Stat 02/23/25 23:39 XR lumbar spine 2-3V Stat XR pelvis 1-2V Stat 02/23/25 23:52 UA Complete [Urinalysis and Microscopic] Stat Urine Culture Stat Discontinued Medications Sodium Chloride (Normal Saline 0.9%) 500 mls @ 1,000 mls/hr IV BOLUS ONE Stop: 02/23/25 23:12 Last Infusion: 02/23/25 23:33 Dose: 0 mls/hr Documented By: Admin: 02/23/25 23:07 Dose: 1,000 mls/hr Documented By: MADELEINE Oxycodone/Acetaminophen (Oxycodone/Acetaminophen 5/325 Tablet) 1 tab PO NOW ONE Stop: 02/23/25 23:40 Last Admin: 02/23/25 23:49 Dose: 1 tab Documented By: MADELEINE Oxycodone/Acetaminophen (Oxycodone/Apap 5/325 Prepack) 1 bottle MISC DIRECTED ONE Stop: 02/23/25 23:40 Last Admin: 02/23/25 23:49 Dose: 1 bottle Documented By: MADELEINE Vital Signs Vital signs: Vital Signs - 8 hr 02/23/25 19:48 02/23/25 20:12 02/23/25 20:30 Temperature 99 F Pulse Rate 77 87 84 Respiratory Rate 20 Blood Pressure 113/64 Pulse Oximetry 93 96 96 Oxygen Delivery Method Room Air 02/23/25 20:34 02/23/25 20:34 02/23/25 21:00 Temperature Pulse Rate 93 H Respiratory Rate 20 Blood Pressure 100/62 108/70 Pulse Oximetry 95 Oxygen Delivery Method 02/23/25 21:00 02/23/25 21:30 02/23/25 21:31 Temperature Pulse Rate 93 H 75 97 H Respiratory Rate 16 Blood Pressure Pulse Oximetry 96 98 97 Oxygen Delivery Method 02/23/25 21:31 02/23/25 22:00 02/23/25 22:00 Temperature Pulse Rate 99 H Respiratory Rate 20 Blood Pressure 139/63 124/69 Pulse Oximetry 97 Oxygen Delivery Method 02/23/25 22:31 02/23/25 23:00 02/23/25 23:01 Temperature Pulse Rate 94 H 105 H Respiratory Rate Blood Pressure 126/66 Pulse Oximetry 96 95 Oxygen Delivery Method 02/23/25 23:01 02/23/25 23:30 02/23/25 23:30 Temperature Pulse Rate 100 H 90 Respiratory Rate 20 Blood Pressure 124/85 Pulse Oximetry 95 96 Oxygen Delivery Method 02/24/25 00:00 02/24/25 00:00 02/24/25 00:46 Temperature Pulse Rate 97 H 89 Respiratory Rate 16 Blood Pressure 127/64 Pulse Oximetry 97 96 Oxygen Delivery Method Medical Decision Making Lab Data 02/23/25 20:32 02/23/25 20:32 Labs: Lab Results 02/23/25 02/23/25 Range/Units 20:32 23:52 WBC 16.4 H (4.5-11.0) X10^3/uL RBC 4.49 L (4.5-5.9) X10^6/uL Hgb 15.0 (13.5-17.5) g/dL Hct 44.8 (41-53) % MCV 99.7 (80-100) fL MCH 33.4 (26-34) PG MCHC 33.5 (30-36) % RDW 15.5 H (11.6-14.8) % Plt Count 183 (150-400) X10^3/uL Neut % (Auto) 86.4 H (50-75) % Lymph % (Auto) 6.6 L (25-40) % [place] % (Auto) 5.4 (3-14) % Eos % (Auto) 0.8 L (2-4) % Baso % (Auto) 0.8 (0-2) % Neut # (Auto) 70043 H (1172-3658) /uL Lymph # (Auto) 1100 (1050-8793) /uL [place] # (Auto) 900 (0-900) /uL Eos # (Auto) 100 (0-450) /uL Baso # (Auto) 100 (0-100) /uL Sodium 135 L (137-145) mmol/L Potassium 5.0 (3.4-5.1) mmol/L Chloride 99 (98-107) mmol/L Carbon Dioxide 25 (22-32) mmol/L BUN 38 H (9-20) mg/dL Creatinine 1.46 H (0.66-1.25) mg/dL Estimated GFR 51 L (>60) mL/min BUN/Creatinine Ratio 26.0 H (6-22) Glucose 145 H (70-99) mg/dL Calcium 9.0 (8.4-10.2) mg/dL Total Bilirubin 0.6 (0.2-1.3) mg/dL AST 37 (17-59) IU/L ALT 32 (<50) IU/L Alkaline Phosphatase 84 (38-126) U/L Troponin I < 0.012 (0.01-0.034) ng/mL NT-Pro-B Natriuret Pep 844 H (<125) pg/mL Total Protein 7.8 (6.3-8.2) g/dL Albumin 4.2 (3.5-5.0) g/dL Globulin 3.6 (1.7-4.1) g/dL Albumin/Globulin Ratio 1.2 (1.0-2.8) Urine Color Yellow Urine Appearance Clear Urine pH 5.5 (4.5-8.0) Ur Specific [place] 1.025 (1.000-1.035) Urine Protein Negative (Negative) Urine Glucose (UA) Negative (Negative) g/dL Urine Ketones Trace H (NEGATIVE) Urine Occult Blood Negative (Negative) Urine Nitrate Negative (Negative) Urine Bilirubin Negative (NEGATIVE) Urine Urobilinogen 0.2 (0.2) E.U./dL Ur Leukocyte Esterase Trace H (NEGATIVE) Urine RBC 0-1/hpf (0-5/HPF) Urine WBC 0-1/hpf (0-5/HPF) Ur Squamous Epith Cells 1-5 /hpf (0-5/HPF) Urine Bacteria Occasional (0-1) (None) Hyaline Casts 1-5/lpf (None) Ur Culture Indicated? Specimen cultured Vol Urine Centrifuged 10ml (spun) MDM Narrative Medical decision making narrative: CC:Fall, hit head, is on rivaroxaban Complicating co-morbidities: progressive weakness and failure to thrive, diabetes, prior stroke, coronary artery disease hypertension Data collected from: patient, who is also his caregiver and has POA Social determinants of health that may influence the patients condition: increasing weakness and inability to care for self at home Medical records reviewed: primary care notes reviewed Differential considered: minor fall, intracranial hemorrhage, cervical spine injury, occult fracture not noted secondary to his decreased sensation on the left side Exam documented above, pertinent findings include: minor abrasion to the left ear helix, left hand both knees. Patient is able to stand at bedside and feels he is back to his baseline Lab Test results independently reviewed as above. Pertinent findings: because patient describes standing for a moment than having dizzy spell additional blood work was done CBC shows leukocytosis 16.4 with a slight left shift at 86.4. no anemia chemistries show slight bump to his creatinine from 1.1-1.46, potassium is appropriate, liver studies are unremarkable troponin is undetectable BNP is minimally elevated at 844 urine does not suggest infection Imaging studies independently reviewed: CT scan of the head shows no intracranial hemorrhage CT of the cervical spine shows no acute fractures lumbar spine x-ray does not show no acute fractures pelvic and hip x-rays do not show no acute fractures Treatments: minor abrasion to the dorsum of the left hand is dressed. Re-evaluations: On re-evaluation, patient is now complaining of low back pain. Will check x-rays of the lumbar spine and pelvis. He thinks it may be related to the discomfort of being on the stretcher. Percocet is also given for pain control explained to him that with his fall he is going to be hurting more in multiple places Discussion: 74-year-old gentleman with a dizziness episode and fall after standing from the toilet. No evidence of intracranial hemorrhage, cervical spine injury, lumbar spine fractures pelvic injury or acute hip injury. Minor contusion and abrasion to the dorsum of the left hand left ear helix in both knees. No sign of infection, acute coronary syndrome, severe anemia or alternate explanation that would explain why today he was significantly worse. Findings reviewed with patient and his . Reassurance is given at this point there was no indication that further workup or hospitalization is required and he is safe for home discharge Discharge Plan Departure Patient Disposition: Home Clinical Impression: Dizziness Fall Qualifiers: Encounter type: initial encounter Qualified Code(s): W19.XXXA - Unspecified fall, initial encounter Abrasion hand Qualifiers: Encounter type: initial encounter Laterality: left Qualified Code(s): S60.512A - Abrasion of left hand, initial encounter Abrasion of ear Qualifiers: Encounter type: initial encounter Laterality: left Qualified Code(s): S00.412A - Abrasion of left ear, initial encounter Activity Restrictions/Additional Instructions: thank you for coming in today I do not have a full explanation for why you had this episode of dizziness that caused your fall today. I am not seeing signs of infection, heart failure, heart attack, stroke or anything that would require further evaluation today. We did do CT scans of your head, your neck, x-rays of your low back, pelvis and hips and did not find any evidence of acute bleeding or new fractures. I suspect you are going to find that you are having aches and pains in ulcerative unusual places tomorrow. Tylenol would be appropriate to use for pain control If you find that you are getting worse or develop any new symptoms, please feel free to return to the emergency department for further evaluation. Prescriptions: No Action torsemide 10 mg tablet 10 mg PO DAILY Qty: 90 3RF metoprolol tartrate 100 mg tablet 100 mg PO BID Qty: 180 3RF (DME) Electric motorized wheelchair See Rx Instructions .Route .MEDSUPPLY Qty: 1 0RF Rx Instructions: As directed allopurinol 300 mg tablet 300 mg PO DAILY Qty: 90 3RF atorvastatin 10 mg tablet 5 mg PO DAILY Qty: 45 3RF lisinopril 10 mg tablet 10 mg PO DAILY Qty: 90 3RF potassium chloride 20 mEq tablet,ER particles/crystals 20 meq PO BID Qty: 180 3RF Xarelto 20 mg tablet 20 mg PO DAILY Qty: 90 3RF venlafaxine 225 mg tablet extended release 24hr 225 mg PO DAILY Qty: 90 3RF cyanocobalamin (vitamin B-12) 1,000 mcg capsule 1,000 mcg PO DAILY cholecalciferol (vitamin D3) 50 mcg (2,000 unit) capsule 50 mcg PO DAILY Referrals: Tan Carter MD [Primary Care Provider] - Stand Alone Forms: Patient Portal/API/Survey
--- NOTE | 2025-02-23 23:39 | DI.RAD.S_ITS ---
PROCEDURE: XR PELVIS 1-2V INDICATIONS: fall from toilet TECHNIQUE: 3 view(s) of the pelvis acquired. COMPARISON: [facility] [place], [place], XR PELVIS WITH LATERAL HIP RIGHT, 06/25/2024, 11:50. FINDINGS: Bones: Again noted are post ORIF changes in right proximal femur. Healing or healed right proximal femoral fracture is seen with chronic appearing deformity. No definite acute fracture or dislocation is seen. Severe right hip joint osteoarthritic changes are seen. No evidence of avascular necrosis of femoral head. No gross hardware loosening or failure. Soft tissues: Visualized bowel gas pattern is normal. No suspicious soft tissue calcifications. IMPRESSION: Asymmetric severe right hip joint osteoarthritis. Old healed or nearly healed right proximal femoral fracture. No acute fracture or dislocation. No gross hardware loosening or failure. No evidence of avascular necrosis of femoral head. Dictated by: Eliu Solitario M.D. on 02/24/2025 at 0:59 Approved by: Eliu Solitario M.D. on 02/24/2025 at 1:02
--- NOTE | 2025-02-23 23:39 | DI.RAD.S_ITS ---
PROCEDURE: XR LUMBAR SPINE 2-3V INDICATIONS: fall from toilet TECHNIQUE: 3 views of the lumbar spine were acquired. COMPARISON: None. FINDINGS: Bones: 5 [id number] vertebrae are present. There is prior vertebral plasty at L4 level. Diffuse osteopenia.. No acute vertebral body compression fractures. Straightening of normal lumbar lordosis is seen. Degenerative disc disease and bilateral facet arthrosis throughout lumbar spine is seen. No suspicious bony lesions. Soft tissues: Overlying bowel gas pattern is normal. No suspicious soft tissue calcifications. IMPRESSION: Prior L4 vertebral plasty. No acute vertebral body compression fracture. Moderate degenerative disc disease throughout lumbar spine. Diffuse osteopenia. Dictated by: Eliu Solitario M.D. on 02/24/2025 at 0:57 Approved by: Eliu Solitario M.D. on 02/24/2025 at 0:59
[2025-02-23] MEDS: OXYCODONE/ACETAMINOPHEN 5/325 TABLET 1 TAB PO (23:49)
[2025-02-23] MEDS: OXYCODONE/APAP 5/325 PREPACK 1 BOTTLE MISC (23:49)
[2025-02-24] VITALS: BP 127/64; PULSE 97; O2SAT 97
[2025-02-24 00:46] VITALS: PULSE 89; RESP 16; O2SAT 96
[2025-02-24 01:00] VITALS: PULSE 94; O2SAT 98
[2025-02-24 01:01] LABS: Appearance Urine UA CLEAR; Bilirubin Urine UA NEGATIVE (NEGATIVE); Color Urine UA YELLOW; Glucose Urine UA NEGATIVE (Negative); Ketones Urine UA TRACE (NEGATIVE); Leukocyte Esterase Urine UA TRACE (NEGATIVE); Nitrite Urine UA NEGATIVE (Negative); Occult Blood Urine UA NEGATIVE (Negative); Protein Urine UA NEGATIVE (Negative); Specific Gravity Urine UA 1.025 (1.000-1.035); Urobilinogen Urine UA 0.2 E.U./dL (0.2); pH Urine UA 5.5 (4.5-8.0)
[2025-02-24 01:09] LABS: Bacteria Urine Occasional (0-1); Culture Indicated Urine Specimen Cultured; Hyaline Casts Urine 1-5/LPF; RBC Urine 0-1/HPF (0-5/HPF); Squamous Epithelial Cell Urine 1-5 /HPF (0-5/HPF); Urine Volume 10mL (spun); WBC Urine 0-1/HPF (0-5/HPF)
[2025-02-24 01:30] VITALS: O2SAT 98
[2025-02-24 01:57] VITALS: BP 136/65; PULSE 93; O2SAT 98
== END 2025-02-24 02:08 | disposition home or self-care (01) ==
PROVIDERS: Emergency Provider Emergency Medicine; Family Provider Orthopaedic Surgery Foot and Ankle Surgery; PCP Internal Medicine
DX: S00.412A Abrasion of left ear, initial encounter (principal); S60.512A Abrasion of left hand, initial encounter; S80.212A Abrasion, left knee, initial encounter; S80.211A Abrasion, right knee, initial encounter; W18.30XA Fall on same level, unspecified, initial encounter; R42 Dizziness and giddiness; Z79.01 Long term (current) use of anticoagulants; M54.50 Low back pain, unspecified
CPT/HCPCS: 36415; 70450; 72100; 72125; 72170; 80053; 81001; 83880; 84484; 85025; 87077; 87086; 87186; 99284

== ENCOUNTER → 2025-02-27 09:20 | Outpatient (CLI) | payer MEDICARE, SELFPAY ==
[2023-03-02 20:56] VITALS: BMI 39.6
[2025-02-27 09:50] LABS: Hematocrit 35.2 % (41-53); Hemoglobin 11.6 g/dL (13.5-17.5); Mean Corpuscular HGB Conc 32.8 % (30-36); Mean Corpuscular Hemoglobin 33.1 PG (26-34); Platelet Count 225 X10^3/uL (150-400); Red Blood Cell Count 3.49 X10^6/uL (4.5-5.9); Red Cell Distribution Width 15.5 % (11.6-14.8)
[2025-02-27 10:15] LABS: Alanine Aminotransferase 39 IU/L (<50); Albumin 3.7 g/dL (3.5-5.0); Albumin Globulin Ratio 1.2 (1.0-2.8); Alkaline Phosphatase 78 U/L (38-126); Aspartate Aminotransferase 53 IU/L (17-59); BUN Creatinine Ratio 38.7 (6-22); Bilirubin Total 1.9 mg/dL (0.2-1.3); Blood Urea Nitrogen 53 mg/dL (9-20); Calcium 8.7 mg/dL (8.4-10.2); Carbon Dioxide 24 mmol/L (22-32); Chloride 99 mmol/L (98-107); Estimated Glomerular Filt Rate 55 mL/min (>60); Glucose 154 mg/dL (70-99); HEMOLYSIS < 15 (0-50); Potassium 5.4 mmol/L (3.4-5.1); Sodium 134 mmol/L (137-145); Total Protein 6.7 g/dL (6.3-8.2)
== END ==
PROVIDERS: Family Provider Orthopaedic Surgery Foot and Ankle Surgery; PCP Internal Medicine; Referring Provider Internal Medicine; Visit Provider Internal Medicine
DX: I67.9 Cerebrovascular disease, unspecified (principal)
CPT/HCPCS: 36415; 80053; 85027